=== PATIENT | female | born 1985 | race Caucasian/White ===

== ENCOUNTER 2021-01-03 15:50 | Emergency (ER) | payer MEDICAID, SELFPAY ==
[2021-01-03] VITALS (7 sets, daily range): BP systolic 99–111; BP diastolic 66–75; PULSE 70–81; RESP 14–16; TEMP 36.6; O2SAT 97–98; BMI 30.3
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
[2021-01-03 16:53] LABS: Absolute Lymphocyte Count 1.93 X10^3/uL (0.83-4.51); Absolute Neutrophil Count 9.2 X10^3/uL (2.0-7.7); Basophil# 0.09 X10^3/uL; Basophil% 0.7 % (0-1); Eosinophil# 0.04 X10^3/uL; Eosinophils% 0.3 % (0-5); Hematocrit 47.6 % (37-47); Hemoglobin 15.6 g/dL (12.0-15.0); Lymphocyte # 1.93 X10^3/ul (0.83-4.51); Lymphocyte % 15.7 % (19-41); Mean Corp Hgb Conc 32.8 g/dL (32-36); Mean Corpuscular Hgb 27.1 pg (27.0-32.0); Mean Corpuscular Volume 82.8 fL (81-99); Mean Platelet Vol. 10.3 fl (6.2-12.0); Monocyte# 0.89 X10^3/uL; Monocyte% 7.3 % (0-10); NRBC Flagged by Analyzer 0 % (0-5); Neutrophil # 9.23 X10^3/uL (2.7-7.7); Neutrophil % 75.3 % (47-70); Platelet Count 301 K/mm3 (150-450); RBC Distribution Width CV 12.5 % (11.6-14.6); RBC Distribution Width SD 37.6 fl (35.1-43.9); Red Blood Count 5.75 M/mm3 (4.2-5.4); White Blood Count 12.3 K/mm3 (4.4-11.0)
[2021-01-03 17:00] LABS: Anion Gap 7 (5-15); BUN 9 mg/dL (7-18); BUN/Creat Ratio 10.4 RATIO (10-20); Calcium,Total 9.2 mg/dL (8.5-10.1); Chloride 106 mmol/L (98-107); Creatinine, Serum 0.86 mg/dL (0.55-1.02); EST Glomerular Filtration Rate 80 mL/min (>60); Est Glom Filt Rate - Afr Amer 97 mL/min (>60); Estimated Creatinine Clearance 83.72 ml/min; Glucose 89 mg/dL (74-106); Sodium Level 138 mmol/L (136-145)
[2021-01-03 17:06] LABS: Amphetamine Urine VISTA NEGATIVE (<1000 ng/mL); Barbiturate Urine VISTA NEGATIVE (< 200 ng/mL); Benzodiazepine Urine VISTA NEGATIVE (< 200 ng/mL); Cocaine Urine VISTA NEGATIVE (< 300 ng/mL); Ecstacy Urine VISTA NEGATIVE (< 500 ng/mL); Methadone Urine VISTA NEGATIVE (< 300 ng/mL); PCP Urine VISTA NEGATIVE (< 25 ng/mL); THC Urine VISTA POSITIVE (< 50 ng/mL); Vista UDS pH Range 5
[2021-01-03 17:17] LABS: Internal QC Validated? YES +Cl - CLEAR BKGD; Pregnancy, Serum, hCG Quali. NEGATIVE Negative
[2021-01-03 17:21] LABS: Acetaminophen (Tylenol) Level 6.1 ug/mL (10.0-30.0); Alcohol, Blood (Medical)-Serum < 3.0 mg/dL
[2021-01-03 18:17] LABS: Salicylate < 1.7 mg/dL (2.8-20.0)
--- NOTE | 2021-01-03 21:35 | ED.RN ---
[facility] CALLED AND THEY ARE PLACING PATIENT, THE PATIENT WAS GOING TO BE SAFETY PLANNED AND TO BE SENT HOME, BUT [facility] CANT GET A HOLD OF FAMILY SO THEY ARE PLACING THE PATIENT.
[2021-01-03 22:27] LABS: Acetaminophen (Tylenol) Level < 2.0 ug/mL (10.0-30.0)
[2021-01-04] VITALS (8 sets, daily range): BP systolic 106; BP diastolic 56; PULSE 86; RESP 14–18; O2SAT 98
--- NOTE | 2021-01-04 00:20 | ED.RN ---
THIS RN IN TO ROOM TO TELL PATIENT ABOUT PLACEMENT AT [facility]. PATIENT BECAME ANGRY AND VERY AGITATED. PATIENT BEGAN SLAMMING PHONE AND REMOTE ON BED. PATIENT STATING SHE DOES NOT WANT TO GO OUT OF TOWN. PATIENT BEGAN PACING IN ROOM WHILE YELLING SHE IS NOT GOING. PATIENT THEN LEFT ROOM AND THE BUILDING. SECURITY AND PD NOTIFIED.
[2021-01-04] MEDS: Ziprasidone IM 20 MG/ML VIAL 10 MG IM (00:53)
== END 2021-01-04 07:18 ==
PROVIDERS: Emergency Provider Emergency Medicine; PCP Family Medicine
DX: R45.851 Suicidal ideations (principal); F32.9 Major depressive disorder, single episode, unspecified; F12.90 Cannabis use, unspecified, uncomplicated
CPT/HCPCS: 36415; 80048; 80307; 80329; 82077; 84703; 85025; 87426; 96372; 99285; G0480; J3486

== ENCOUNTER 2022-02-15 01:06 | Emergency (ER) | payer MEDICARE, MEDICAID, SELFPAY ==
[2022-02-15 01:07] VITALS: BP 110/67; PULSE 63; RESP 18; TEMP 36.2; O2SAT 99; BMI 31.5
[2022-02-15 05:39] VITALS: BP 133/71; PULSE 72; RESP 14; O2SAT 96
--- NOTE | 2022-02-15 23:06 | EDS_ITS ---
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 She states that in the last days she has noticed a red itchy rash across her arms and face. She states nowhere else does she have the rash and she denies any other exposures other than working outside. She states she is concerned she is developed poison mk and secondary to this comes in for evaluation. [facility] Medical History Depression Home Medications escitalopram oxalate 10 mg tablet 10 mg PO DAILY 02/15/22 [History Last Taken Unknown] Allergy/AdvReac Type Severity Reaction Status Date / Time No Known Allergies Allergy Verified 01/03/21 15:58 Social History Smoking Status: Never smoker ROS ROS ED Constitutional Constitutional ED: Denies chills or fever(s) ENT ENT ED: Denies sore throat Cardiovascular Cardiovascular: Denies chest pain Respiratory/Chest Respiratory/Chest: Denies cough or dyspnea Gastrointestinal Gastrointestinal: Denies abdominal pain, diarrhea, nausea or vomiting Genitourinary Genitourinary ED: Denies dysuria Musculoskeletal Musculoskeletal: Denies myalgias Integumentary Reports rash Neurologic Neurologic: Denies headache(s) Hematologic/Lymphatic Hematologic/Lymphatic: Denies easy bleeding or easy bruising EXAM Physical Exam Const Vital Signs: 02/15/22 01:07 02/15/22 05:39 Temperature 97.2 F L Temperature Source Temporal Pulse Rate 63 72 Respiratory Rate 18 14 Blood Pressure 110/67 133/71 H Blood Pressure Mean 81 Pulse Ox 99 96 Oxygen Delivery Method Room Air Positive well nourished and well developed General Appearance ED: well developed HEENT Reports moist mucous membranes HEENT Narrative: No tongue or lip swelling no oral lesions no airway edema or compromise Eyes PERRL and EOMs intact bilaterally Neck supple Resp normal respiratory effort and clear to auscultation bilaterally Cardio regular rate and regular rhythm Extremity normal to inspection Neuro oriented x3 and CN's II-XII intact bilaterally Sensorium / Orientation: alert Psych mental status grossly normal Skin Skin Narrative: Erythematous vesicular rash in Kebner's line pattern to the bilateral arms as well as irritation across the cheek and forehead consistent with contact dermatitis. No involvement of the palms or soles. No involvement underneath th e clothing line. No secondary changes to suggest infection MDM MDM MDM Narrative Medical decision making narrative: Patient presented to the ER afebrile with no signs of respiratory distress. Her history and exam is consistent with contact dermatitis. As she does not have signs of respiratory distress or secondary infection I do not feel there is need for work-up. Patient will be given Kenalog shot in the ER secondary to her symptoms and will be placed on a prednisone taper for home but is otherwise safe for discharge Discharge Plan Triage Chief Complaint: Rash ED Provider: Larry Mcmahan Dx/Rx/DC Orders Clinical Impression: Contact dermatitis Prescriptions: No Action escitalopram oxalate 10 mg tablet 10 mg PO DAILY Label Comments: Take 1 tablet by mouth once daily. Primary Care Provider: Kofi Collins Referrals: Kofi Collins MD [Primary Care Provider] - Disposition Disposition: Home, Self Care Discharge Date/Time: 02/15/22 02:50
== END 2022-02-15 02:50 | disposition home or self-care (01) ==
PROVIDERS: Emergency Provider Emergency Medicine; PCP Family Medicine; Visit Provider Emergency Medicine
DX: L25.9 Unspecified contact dermatitis, unspecified cause (principal); F32.A Depression, unspecified; Z79.899 Other long term (current) drug therapy
CPT/HCPCS: 96372; 99282

== ENCOUNTER 2022-04-05 21:45 | Emergency (ER) | payer MEDICARE, MEDICAID, SELFPAY ==
[2022-04-05 21:46] VITALS: BP 116/73; PULSE 81; RESP 15; TEMP 36.8; O2SAT 98; BMI 29.1
--- NOTE | 2022-04-05 22:00 | EDS_ITS ---
HPI History of Present Illness Chief Complaint: Rash Informant: patient and spouse/S.O. Onset/Context/Timing Onset: Days Context: Gradual Onset Timing: Continuous Current Severity: Mild Maximum Severity: Mild Narrative Narrative: 36-year-old female no seen past medical history was doing a lot of yard work at home they were cleaning bushes etc. and the last 4 days she has had a red itchy rash on her right arm. She has had this before secondary to allergic reaction. Was treated with steroids that resolved. She denies any other complaints. Prior similar symptoms: Yes Recent Illness/Hospitalization: No PFSH PFS Medical History Depression no medical history Home Medications escitalopram oxalate 10 mg tablet 10 mg PO DAILY 02/15/22 [History Last Taken Unknown] prednisone 20 mg tablet 40 mg PO DAILY 10 days #20 tabs 04/05/22 [Rx Last Taken Unknown] Allergy/AdvReac Type Severity Reaction Status Date / Time No Known Allergies Allergy Verified 04/05/22 21:48 Family History no significant family his no significant family history Social History Smoking Status: Never smoker ROS ROS ED Review of Systems ROS Unobtainable: Denies due to encephalopathy Constitutional Constitutional ED: Denies chills or fever(s) Eyes Eyes: Denies blurry vision ENT ENT ED: Denies ear pain Cardiovascular Cardiovascular: Denies chest pain Respiratory/Chest Respiratory/Chest: Denies cough or dyspnea Gastrointestinal Gastrointestinal: Denies abdominal pain Genitourinary Genitourinary ED: Denies dysuria or hematuria Musculoskeletal Musculoskeletal: Denies arthralgias Integumentary Denies abscess or Abrasions Neurologic Neurologic: Denies headache(s) Psychiatric Psychiatric: Denies anxiety or depression Endocrine Endocrinology: Denies cold intolerance Hematologic/Lymphatic Hematologic/Lymphatic: Reports none Allergic/Immunologic Allergic/Immunologic ED: Denies mouth swelling or tongue swelling EXAM Physical Exam Narrative Exam Narrative: 36-year-old no acute distress vital signs stable afebrile. HEENT exam unremarkable. Lungs are clear. Heart regular rhythm. Abdomen soft nontender. Moving all 4 extremities. Right forearm and upper arm she has a rash consistent with poison kourtney or contact dermatitis. There is no folliculitis. No cellulitis. No axillary lymphadenopathy. No streaks. No abscesses. Otherwise exam benign. Const Vital Signs: 04/05/22 21:46 Temperature 98.2 F Temperature Source Temporal Pulse Rate 81 Respiratory Rate 15 Blood Pressure 116/73 Blood Pressure Mean 87 Pulse Ox 98 Oxygen Delivery Method Room Air Positive well nourished and well developed; Negative for obese, cachectic, contractures or unkempt General Appearance ED: well developed and NAD; Negative for unkempt, cachectic, contractures, cyanotic or pallor Nutritional Appearance: Negative for cachectic or obese HEENT Reports moist mucous membranes; Denies dry mucous membranes Negative for trauma Mouth ED: No dry mucous membranes Mouth: No dry mucous membranes Eyes PERRL and EOMs intact bilaterally General Eye ED: Negative for pale conjunctiva or scleral icterus Neck no lymphadenopathy, supple and no JVD General: Negative for tenderness Lymph Lymphatic: Negative for other Chest Wall inspection of chest normal Chest: Negative for other Resp normal respiratory effort and clear to auscultation bilaterally Effort and Inspection: Negative for retractions Auscultation: Negative for rales, rhonchi or wheezes Cardio regular rate, regular rhythm, S1 normal heart sound, S2 normal heart sound and no murmurs Palpation: Negative for palpable S3 Rate: Negative for bradycardia Rhythm: Negative for abnormal rhythm GI normal to inspection, nondistended, normoactive bowel sounds, non-tender, non- distended and no masses Inspection: Negative for abdominal distention Auscultation: normoactive bowel sounds Palpation: soft; Negative for tender, guarding, splenomegaly or mass Back/Spine no CVA tenderness General Back: Negative for CVA tenderness Cervical Spine: Negative for cervical spine tenderness Thoracic Spine / Upper Back: Negative for thoracic spinal tenderness Lumbar Spine / Lower Back: Negative for lumbar spinal tenderness Extremity normal to inspection Extremity Narrative: Except for contact dermatitis rash right forearm and upper arm. General Extremety ED: Negative for edema or tenderness General Extremity: Negative for edema Neuro oriented x3 and CN's II-XII intact bilaterally Sensorium / Orientation: alert Motor Exam: strength 5/5 throughout Psych mental status grossly normal Appearance: Negative for unkempt Attitude: No agitated Mood & Affect: Negative for depressed or anxious Skin no rashes or lesions noted and no wounds Skin Narrative: Right forearm rash consistent with contact dermatitis. General Skin Exam: Negative for elasticity normal, jaundice or pallor Lesions: No lesion noted Rashes: rashes noted MDM MDM MDM Narrative Medical decision making narrative: Patient with contact dermatitis to be started on prednisone. First dose given here. 40 mg a day for 10 days and she was instructed she may stop it early if the rash resolves. Discharge Plan Triage Chief Complaint: Rash ED Provider: Froylan David Dx/Rx/DC Orders Clinical Impression: Contact dermatitis Instructions: ED Contact Dermatitis, ED Poison Kourtney Rash Prescriptions: New prednisone 20 mg tablet 40 mg PO DAILY 10 Days Qty: 20 0RF No Action escitalopram oxalate 10 mg tablet 10 mg PO DAILY Label Comments: Take 1 tablet by mouth once daily. Primary Care Provider: Kofi Collins Referrals: Kofi Collins MD [Primary Care Provider] - 1 Week if not improving Activity Restrictions/Additional Instructions: Prednisone daily 40 mg for the next 10 days. If the rash goes away before the prescription is finished he may stop. Benadryl for itching. Follow-up with your doctor if not improving. Return if worse. Disposition Disposition: Home, Self Care
[2022-04-05] MEDS: predniSONE 20 MG Tablet 60 MG PO (22:07)
== END 2022-04-05 22:08 | disposition home or self-care (01) ==
PROVIDERS: Emergency Provider Emergency Medicine; PCP Family Medicine; Visit Provider Emergency Medicine
DX: L25.9 Unspecified contact dermatitis, unspecified cause (principal); F32.A Depression, unspecified; Z79.899 Other long term (current) drug therapy
CPT/HCPCS: 99283

== ENCOUNTER 2025-06-21 15:58 | Emergency (ER) | payer MEDICARE, MEDICAID, SELFPAY ==
[2025-06-21 15:59] VITALS: BP 120/81; PULSE 77; RESP 16; TEMP 36.8; O2SAT 99; BMI 30.3
--- NOTE | 2025-06-21 16:15 | RAD_ITS ---
PROCEDURE: KNEE 4 OR MORE VIEWS 06/21/2025 REASON FOR EXAM: PAIN TECHNIQUE: Procedure Code: RADKN Modality: DX Procedure: KNEE 4 OR MORE VIEWS Laterality: FINDINGS: No acute fracture or dislocation. Questionable joint space narrowing, particularly in the lateral compartment, however this may be projectional in nature. Otherwise no significant bone or joint abnormality. No focal soft tissue swelling. RAD/Knee 4 or More Views IMPRESSION: As above. Reading Location: [id number]
--- NOTE | 2025-06-21 19:22 | ED.VIS.LOWEX ---
HPI History of Present Illness HPI Narrative: 40-year-old female no significant past medical history. Complaining of mild knee pain for the last several days. She has been doing landscaping outside and cleaning out the garage. Says just feels sore. No redness. No fever. No prior knee history or surgery. She is able to walk. Chief Complaint: Lower Extremity Injury Informant: patient Occured/Mechanism Mechanism/Context: No injury and No blunt trauma Narrative Narrative: 40-year-old right knee pain. Prior similar symptoms: No Recent Illness/Hospitalization: No PFSH PFSH Medical History Depression Home Medications ?Medication ?Instructions ?Recorded ?Last Taken ?Type escitalopram oxalate 10 mg tablet 10 mg PO DAILY 02/15/22 Unknown History prednisone 20 mg tablet 40 mg (2 x 20 mg) PO DAILY 10 days 04/05/22 Unknown Rx #20 tabs Allergy/AdvReac Type Severity Reaction Status Date / Time No Known Allergies Allergy Verified 06/21/25 15:59 Social History Smoking Status: Never smoker ROS ROS ED ROS Narrative Denies recent illness. Constitutional Constitutional ED: Denies fever(s) Eyes Eyes: Denies blurry vision ENT ENT ED: Denies ear pain Cardiovascular Cardiovascular: Denies chest pain Respiratory/Chest Respiratory/Chest: Denies cough or dyspnea Gastrointestinal Gastrointestinal: Denies abdominal pain Genitourinary Genitourinary ED: Denies dysuria or hematuria Musculoskeletal Musculoskeletal: Denies arthralgias Integumentary Denies abscess Neurologic Neurologic: Denies headache(s) Psychiatric Psychiatric: Denies anxiety Endocrine Endocrinology: Denies polydipsia Hematologic/Lymphatic Hematologic/Lymphatic: Denies easy bleeding, easy bruising or lymphadenopathy Allergic/Immunologic Allergic/Immunologic ED: Denies mouth swelling, tongue swelling or urticaria EXAM Physical Exam Narrative Exam Narrative: 40-year-old female sitting upright in bed. Vital signs stable afebrile. No acute distress. H EENT exam normal. Moist membranes. Neck nontender no JVD. No lymphadenopathy. Lungs clear to auscultation bilaterally. Heart regular rhythm no murmur. Chest wall nontender. Abdomen soft nontender. Patient moving all 4 extremities. 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 Normal dorsi plantarflexion. Right hip knee and ankle are nontender nonswollen. The right knee has full flexion extension. ACL, PCL are intact. MCL and LCL are intact. Quadriceps and patella and infrapatellar tendon are intact. She can do full extension 180 degrees in full flexion. There is no effusion. No redness or warmth. No septic joint. Normal knee exam. Patient is awake and alert. No focal motor deficits. Const Vital Signs: 06/21/25 15:59 Temperature 98.2 F Temperature Source Oral Pulse Rate 77 Respiratory Rate 16 Blood Pressure 120/81 H Blood Pressure Mean 94 Pulse Ox 99 Oxygen Delivery Method Room Air MDM MDM MDM Narrative Medical decision making narrative: 40-year-old with knee pain from overuse. Exam benign. X-ray unremarkable. Treated as knee inflammation. Ice. Motrin. Follow-up with not proving return if redness or swelling. Radiography Diagnostic Testing: Clinical Impression(s) from Imaging Studies Knee X-Ray 06/21/25 16:15 IMPRESSION: As above. Reading Location: [facility] Right knee x-ray, 4 views, interpreted by myself and the radiologist shows no acute abnormality. No fracture. No effusion. Discharge Plan Triage Chief Complaint: Lower Extremity Injury ED Provider: Froylan David Dx/Rx/DC Orders Clinical Impression: Acute knee pain Instructions: Knee Pain Prescriptions: No Action escitalopram oxalate 10 mg tablet 10 mg PO DAILY Patient Comments: Take 1 tablet by mouth once daily. prednisone 20 mg tablet 40 mg PO DAILY 10 Days Qty: 20 0RF Primary Care Provider: Kofi Collins Referrals: Kofi Collins MD [Primary Care Provider, Family Practice] - 10-14 Days if not better Activity Restrictions/Additional Instructions: Your knee x-ray looks good. Ice the knee to decrease pain and inflammation. Motrin 600 mg 3 times a day for pain and inflammation. Tylenol for pain. This should progressively improved. Increase activity as tolerated. If not improving follow-up with your doctor. Print Language: Luxembourgish Disposition Disposition: Home, Self Care
[2025-06-21 19:38] VITALS: BP 106/69; PULSE 67; RESP 16; TEMP 36.8; O2SAT 99
--- OUTSIDE RECORDS SUMMARY | 2025-06-21 19:39 | XMS RPT_ITS | CCD ---
Author Organization [facility] Inform ion Partnership [facility] Care Team Providers Care [employer] Pack[employer] Leak Tester Name Role Phone Kena Delaney MD Primary Care Provider Kena Delaney MD Primary Care Provider Tannhof NUMERICAL CONTROL DRILL PRESS OPERATOR.Shelly DAVENPORT Unavailable Rell NUMERICAL CONTROL DRILL PRESS OPERATOR.Sidney DAVENPORT Unavailable Tannhof NUMERICAL CONTROL DRILL PRESS OPERATOR.Shelly DAVENPORT Unavailable KENA DELANEY Primary Care Unavailable WENDY EUCEDA Attending Unavailable KENA DELANEY Attending Unavailable KENA DELANEY Primary Care Unavailable TIFFANIE PRYOR Attending Unavailable KENA DELANEY Referring Unavailable KENA DELANEY Primary Care Unavailable TIFFANIE PRYOR Attending Unavailable TIFFANIE PRYOR Referring Unavailable KENA DELANEY Primary Care Unavailable Medications Current Medications Medication Drug Class(es) Dates Sig (Normalized) Sig (Original) amoxicillin 875 mg / clavulanate 125 mg oral tablet (1 source) Penicillin-class Antibacterial Start: 03-10-2024 End: 03-20-2024 take 1 tablet by mouth twice daily amoxicillin-clavu lanate potassium (AUGMENTIN) 875-125 mg per tablet Indications: Cellulitis of skin Take 1 tablet by mouth two times a day for 10 days. 20 tablet 0 03/10/2024 03/20/2024 Active cholecalciferol 0.1 mg oral capsule (10 sources) Vitamin D Start: 02-14-2021 take 1 capsule by mouth twice daily cholecalciferol, vitamin D3, (VITAMIN D3) 100 mcg (4,000 unit) cap Indications: Vitamin D deficiency Take 1 capsule by mouth twice daily. 60 capsule 6 02/14/2021 Active Comment on above: Take 1 capsule by mo [facility] twice daily. escitalopram 10 mg oral tablet (15 sources) Serotonin Reuptake Inhibitor Start: 02-14-2021 End: 11-25-2024 take 1 tablet by mouth once daily escitalopram oxalate (LEXAPRO) 10 mg tablet Indications: Current moderate episode of major depressive disorder, unspecified whether recurrent (HCC) Take 1 tablet by mouth once daily. 30 tablet 11 11/25/2024 Active Comment on above: Take 1 tablet by [facility] once daily. hydrOXYzine pamoate 50 mg oral capsule (9 sources) Antihistamine Start: 11-25-2024 End: 05-24-2025 take 1 capsule by mouth three times daily as needed for anxiety hydrOXYzine pamoate (VISTARIL) 50 mg capsule Indications: Current moderate episode of major depressive disorder, unspecified whether recurrent (HCC) Take 1 capsule by mouth three times a day as needed for anxiety. 60 capsule 5 11/25/2024 05/24/2025 Active Start: 2023 End: 11-17-2023 take 1 capsule by mouth three times daily as needed for anxiety hydrOXYzine pamoate (VISTARIL) 50 mg capsule Indications: Current moderate episode of major depressive disorder, unspecified whether recurrent (HCC) Take 1 capsule by mouth three times daily as needed for anxiety. 60 capsule 5 2023 11/17/2023 Active Comment on above: Take 50 mg by mouth three times daily as needed. Take 1 capsule by [facility] three times daily as needed for anxiety. levonorgestrel 0.011479 mg/hr intrauterine system (15 sources) Progestin, Progestin-containing Intrauterine Device Start: 01-05-2025 End: 01-03-2033 levonorgestrel (MIRENA) 21 mcg/24hr (up to 8 yrs) 52 mg IUD 1 each by INTRAUTERINE route as directed. 1 each 01/05/2025 01/03/2033 Active Start: 01-05-2025 End: 01-05-2025 1 each, INTRAUTERINE, ONCE ( UP TO 30 DAYS AMB), 1 dose, On Sun01/05/25 at 1030, Hazardous Potential Reproductive Risk Drug: Use appropriate PPE. levonorgestrel ( MIRENA) 20 mcg/24 hr (5 years) IUD 1 Each by INTRAUTERINE route one time only. Active Comment on above: 1 Each by INTRAUTERI NE route one time only. predniSONE 20 mg oral tablet (5 sources) Start: 4 End: 4 take 1 tablet by mouth once daily predniSONE (DELTASONE) 20 mg tablet Take 1 tablet by mouth once daily for 5 days. 5 tablet 0 03/10/2024 03/15/2024 Active Start: 02-12-2023 End: 03-10-2024 predniSONE (DELTASONE) 10 mg tablet Take 4 tabs daily for 3 days, then 2 tabs daily for 3 days, then 1 tab daily for 3 days with food. 21 tablet 0 02/12/2023 03/10/2024 Discontinued Start: 04-05-2022 take 40 mg by mouth once daily Prednisone Active 40 MG PO DAILY 22 06April 05, 2022 12:00am Comment on above: Take 4 tabs daily fo r 3 days, then 2 tabs daily for 3 days, then 1 tab daily for 3 days with food. triamcinolone acetonide 5 mg/ml topical cream (2 sources) Corticosteroid Start: 05-09-2022 End: 05-23-2022 triamcinolone acetonide (KENALOG) 0.5 % cream Apply 1 application to affected area twice daily for 14 days. For rash/itching. Apply sparingly. Avoid face/skin fold. 15 g 0 05/09/2022 05/23/2022 Active Comment on above: Apply 1 application to affected area twice daily for 14 days. For rash/itching. Apply sparingly. Avoid face/skin fold. Problems Active Problems Problem Classification Problem Date Documented Da te Episodic/Chronic Allergic reactions (4 sources) Contact dermatitis; Translations: [Unspecified contact dermatitis, unspecified cause] Episodic Immunizations and screening for infectious disease (2 sources) Viral screening status; Translations: [Encounter for screening for other viral diseases] Episodic Mood disorders (12 sources) Depressive disorder; Translations: [Depression, unspecified depression type] Onset: 05-24-2022 Chronic Other nutritional; endocrine; and metabolic disorders (1 source) Obesity; Translations: [Other obesity due to excess calories] Onset: 05-24-2022 05-24-2022 Chronic Other nutritional; endocrine; and metabolic disorders (8 sources) Obesity caused by energy imbalance; Translations: [Other obesity due to excess calories] Onset: 05-24-2022 05-24-2022 Chronic Other screening for suspected conditions (not mental disorders or infectious disease) (2 sources) Cancer cervix screening status; Translations: [Encounter for screening for malignant neoplasm of cervix] Episodic Other skin disorders (1 source) Skin lesion; Translations: [Disorder of the skin and subcutaneous tissue, unspecified] 2023 Episodic Other upper respiratory infections (1 source) Sore throat symptom; Translations: [Acute pharyngitis, unspecified] 02-25-2024 Episodic Residual codes; unclassified (1 source) Swelling; Translations: [Edema, unspecified] 03-10-2024 Episodic Screening and history of mental health and substance abuse codes (1 source) Patient encounter status; Translations: [Encounter for screening examination for other mental health and behavioral disorders] 11-25-2024 Episodic Skin and subcutaneous tissue infections (1 source) Cellulitis of skin; Translations: [Cellulitis, unspecified] 03-10-2024 Episodic Sprains and strains (2 sources) Sprain of right knee; Translations: [Sprain of unspecified site of right knee, initial encounter] Onset: 04-28-2025 04-28-2025 Episodic Suicide and intentional self-inflicted injury (2 sources) Suicidal thoughts; Translations: [Suicidal ideations] Episodic Unclassified (1 source) Patient encounter status 11-25-2024 Past or Other Problems Problem Classification Problem Date Documented Date Episodic/Chronic Administrative/social admission (7 sources) Lost custody of children; Translations: [Problems related to other legal circumstances] Onset: 06-01-2015 Resolved: 12-15-2015 08-29-2021 Episodic Bacterial infection; unspecified site (9 sources) Actinomycotic infection; Translations: [Actinomycosis, unspecified] Onset: 05-30-2022 05-30-2022 Episodic Contraceptive and procreative management (7 sources) Contraception status; Translations: [Encounter for removal and reinsertion of intrauterine contraceptive device] Onset: 01-05-2025 Episodic Mycoses (7 sources) Onychomycosis due to dermatophyte ; Translations: [Tinea unguium] Onset: 07-17-2005 Resolved: 08-13-2014 08-13-2014 Episodic Other complications of (14 sources) Late entry into care; Translations: [Supervision of with insufficient care, unspecified trimester] Onset: 08-13-2014 Resolved: 12-15-2015 08-29-2021 Episodic Other complications of (7 sources) Rubella non-immune; Translations: [Supervision of other high risk pregnancies, unspecified trimester] Onset: 08-18-2014 Resolved: 12-18-2014 12-18-2014 Episodic Other complications of (7 sources) High risk ; Translations: [Supervision of other high risk pregnancies, unspecified trimester] Onset: 04-05-2015 Resolved: 12-15-2015 12-15-2015 Episodic Other complications of (7 sources) H/O: premature delivery; Translations: [Supervision of with history of pre-term labor, second trimester] Onset: 05-03-2015 Resolved: 12-15-2015 08-29-2021 Episodic Other non-traumatic joint disorders (7 sources) Arthralgia of the ankle and/or foot; Translations: [Pain in unspecified ankle and joints of unspecified foot] Onset: 05-16-2008 Resolved: 08-13-2014 08-13-2014 Episodic Other and delivery including normal (7 sources) Normal ; Translations: [Encounter for supervision of other normal , unspecified trimester] Onset: 09-10-2014 Resolved: 12-18-2014 12-18-2014 Episodic Results Test Name Value Interpretation Reference Range Kena HUTCHISONOVon 04-28-2025 CNOV Office Visit (WOUCA) LIANNE SPARKS ([id number]) 1985 F Date Time Provider Department 04/28/25 3:45 PM WENDY EUCEDA During your visit today, we recorded the following information about you: Temperature Pulse Respiration Blood pressure 98 degrees 76/minute 16/minute 122/74 Weight 83.3 kg Wendy Euceda, KIMBERLEE.SHIPPING ASSOCIATE 04/28/2025 3:52 PM Signed [facility] Subjective Lianne Sparks is a 39 year old female. Patient presents with: Thigh Pain: right thigh pain x 1 day HPI The patient is a 39-year-old female presenting for evaluation of a popping sensation in the thigh. Thigh Popping: - Onset yesterday while bending down in her room. - Preceded by a day of yard work involving repetitive bending. - Describes a poppingsensation in the thigh above the knee and some slight knee pain. - Sherwood unable to bend the leg yesterday; propped it up on a pillow and took pain medication. - Woke up today with continued pain in right thigh but improved from yesterday. - Denies any falls or trauma. Review of Systems Constitutional: Negative for chills and fever. Musculoskeletal: Positive for myalgias. Negative for back pain, gait problem and joint swelling. Skin: Negative for color change and rash. Musculoskeletal: (+) right thigh popping sensation, (+) right knee pain, (-) calf pain Objective BP 122/74 Pulse 76 Temp 36.7 ?C (98 ?F) Resp 16 Wt 83.3 kg (183 lb 10.3 oz) LMP 12/05/2015 SpO2 98% BMI 33.59 kg/m? PAST MEDICAL HISTORY Diagnosis Date - Depression - Depression 05/24/2022 PAST SURGICAL HISTORY Procedure Laterality Date - MIRENA 09/20/2015 ALLERGIES Patient has no known allergies. MEDICATIONS - escitalopram oxalate (LEXAPRO) 10 mg tablet Take 1 tablet by mouth once daily. - hydrOXYzine pamoate (VISTARIL) 50 mg capsule Take 1 capsule by mouth three times a day as needed for anxiety. - cholecalciferol, vitamin D3, (VITAMIN D3) 100 mcg (4,000 unit) cap Take 1 capsule by mouth twice daily. - levonorgestrel (MIRENA) 20 mcg/24 hr (5 years) IUD 1 Each by INTRAUTERINE route one time only. - levonorgestrel (MIRENA) 21 mcg/24hr (up to 8 yrs) 52 mg IUD 1 each by INTRAUTERINE route as directed. FAMILY HISTORY Problem Relation Age of Onset - No Known Problems Mother - No Known Problems Father - other (marfans) Half-sister - Hypertension Maternal Grandmother - Heart Maternal Grandmother - No Known Problems Maternal Grandfather - No Known Problems Paternal Grandmother - No Known Problems Paternal Grandfather SOCIAL HISTORY[1] Physical Exam Vitals and nursing note reviewed. Constitutional: General: She is not in acute distress. Appearance: Normal appearance. She is not ill-appearing. Neurological: Mental Status: She is alert. General: No acute distress. MSK/Ext: Tenderness reported along right distal thigh, knee stable, pain elicited with knee flexion, no calf pain. No knee, thigh or calf swelling. Skin warm and dry. No erythema or rash. { 1. Sprain of right knee, unspecified ligament, initial encounter (S83.91XA) - Acute right knee sprain after increased activity and sudden movement; exam reveals localized pain, but knee is stable with no calf pain. - Applied BIJU wrap for stabilization and compression. - Advised rest, elevation, and application of ice to the affected area. - Recommended use of ibuprofen or Tylenol for pain management. - Follow-up with your PCP in 3-5 days if symptoms have not improved or sooner if symptoms worsen - Discussed red flags and need for immediate medical evaluation if any occur. - Discussed supportive care treatment with fluids, rest and analgesia. - Discussed expected course of illness Wendy Euceda APRN.SHIPPING ASSOCIATE and Recording using [employer] software for draft documentation of the visit was discussed with the patient/authorized sales utility representative; all questions welcomed and answered. Patient/authorized sales utility representative agreed to proceed Disposition The patient was discharged. OTC Medications were advised: Tylenol/ibuprofen Procedures [1] Social History Tobacco Use - Smoking status: Never - Smokeless tobacco: Never Vaping Use - Vaping status: Former Substance Use Topics - Alcohol use: No - Drug use: Not Currently Types: Marijuana Wendy Euceda APRN.SHIPPING ASSOCIATE 04/28/2025 3:51 PM Signed 1. Sprain of right knee, unspecified ligament, initial encounter (S83.91XA) - Acute right knee sprain after increased activity and sudden movement; exam reveals localized pain, but knee is stable with no calf pain. - Applied BIJU wrap for stabilization and compression. - Advised rest, elevation, and application of ice to the affected area. - Recommended use of ibuprofen or Tylenol for pain management. - Diagnosis: sprained right knee. - The BIJU wrap applied will help stabilize your kne (more content not included)... Normal [facility] CNOVon 01-05-2025 CNOV Office Visit (OBGYWM ) LIANNE SPARKS ([id number]) 1985 F Date Time Provider Department 01/05/25 10:10 AM TIFFANIE PRYOR OBEMILEE During your visit today, we recorded the following information about you: Blood pressure Weight 110/64 84.4 kg Tiffanie Pryor MD 01/05/2025 10:24 AM Carol Abdalla presents for removal of IUD due to expiration of IUD. UNIVERSAL PROTOCOL / SAFETY CHECKLIST Procedure to be Performed: IUD removal Sign In: A Moment of CARE was completed. Appropriate PPE (Personal Protective Equipment) worn by all providers involved with the procedure. Special equipment not required. Patient/Surrogate Stated/Verified: Patient name, Date of , Relevant allergies, and The intended procedure Time Out: Relevant labs, photos, and/or imaging studies have been reviewed. Intended patient and procedure match the source document(s) (e.g. consent, HANDP, associated studies [imaging, pathology]) match the intended patient and procedure. Consent obtained and matches the intended procedure. Yes. Correct side/site is not applicable. Medications required for this procedure are not applicable. Fire risk assessed and is not applicable. Implants: Correct implant(s) confirmed including size and side. Expiration date(s) reviewed. Sign Out: Specimens not collected. All instruments, equipment, possible retained foreign bodies are accounted for. Yes. The post-procedure plan of care has been communicated to the patient or surrogate. PROCEDURE: Speculum placed in vagina, IUD string visualized and grasped with ring forceps. ASSESSMENT/PLAN: IUD removed without difficulty, intact, and patient tolerated procedure well. Contraception plans: Mirena IUD MD Lianne Matthews presents today for IUD insertion for contraception. Patient's last menstrual period was 12/05/2015. GC/chlamydia: Not done: no risk factors and/or patient declines screening test: negative Side effects including irregular bleeding were discussed with the patient. The patient understands that it should be removed in 8 years or sooner if the patient desires a . IUD source: office provided IUD lot #: [id number] Exp date: 01/31/2027 The cervix was prepped with betadine. The uterus sounded to 3 cm and the uterus is Midposition.. Using sterile technique, the Mirena IUD was inserted without difficulty and the string was cut to 3 cm from the external os of the cervix. Patient tolerated procedure well. PLAN: Patient was advised to observe for signs and symptoms of infection including but not limited to fever, malodorous vaginal discharge and/or pain. The patient was told to check the string monthly for accurate placement. Bleeding expectations were reviewed. Follow up for next annual exam or sooner as needed. Tiffanie Pryor MD [place], [place] 01/05/2025 9:55 AM Signed POST IUD INSTRUCTIONS You may have irregular bleeding during the first 3 months of use. You may have mild-severe cramping for the next 48 hours. You may use over the counter medication (Motrin, Tylenol) as needed. Your IUD must be removed or replaced based on the following table: IUD Type Removed or replaced within: Valerie 3 years Kyleena 5 years Mirena 8 years Liletta 8 years Paragard 10 years Call the office for signs/symptoms of infection such as severe cramping, fever, or unusual bleeding. Check for string placement as instructed by your doctor. If you have any additional questions, please contact the office. Referring Provider: TIFFANIE PRYOR [[id number]] Allergies As of Date: 01/05/2025 (No Known Allergies) Date Reviewed: 01/05/2025 Reviewed by: Tiffanie Pryor MD - Fully Assessed Reason for Visit: Insertion Of IUD [291] Cmt: Removal and insertion Primary Visit Diagnosis:Encounter for removal and reinsertion of intrauterine contraceptive device (IUD) [Z30.433] Other Visit Diagnosis:Encounter for IUD insertion [Z30.430] Order(s):UA DIP,URINE HCG (POC) [3201434] Order #: [id number]. #:[id number] [] levonorgestrel 21 mcg/24hr (up to 8 yrs) 52 mg 1 each intrauterine device (MIRENA)Disp: Rfl: levonorgestrel (MIRENA) 21 mcg/24hr (up to 8 yrs) 52 mg IUD1 each by INTRAUTERINE route as directed.Disp: 1 eachRfl: 0 Prescriptions as of 01/05/2025 - levonorgestrel (MIRENA) 21 mcg/24hr (up to 8 yrs) 52 mg IUD 1 each by INTRAUTERINE route as directed. - escitalopram oxalate (LEXAPRO) 10 mg tablet Take 1 tablet by mouth once daily. - hydrOXYzine pamoate (VISTARIL) 50 mg capsule Take 1 capsule by mouth three times a day as needed for anxiety. - cholecalciferol, vitamin D3, (VITAMIN D3) 100 mcg (4,000 unit) cap Take 1 capsule by mouth twice daily. - levonorgestrel (MIRENA) 20 mcg/24 hr (5 years) IUD 1 Each by INTRAUTERINE route one time only. Problem List As Of Date (more content not included)... Normal [facility] UA DIP,URINE HCG (POC)on Beta HCG ( test) Ql (U) Negative Negative [facility] Comment on above: Location:[facility], [address] [place], [address] [employer] (POCT) Internal [facility] Location:[facility], [address], [place], [place], [id number] [place] [address] POINT OF CARE [facility] CNOVon 12-10-2024 CNOV Office Visit (OBGYWM ) LIANNE SPARKS ([id number]) 1985 F Date Time Provider Department 12/10/24 2:20 PM TIFFANIE PRYOR OBEMILEE During your visit today, we recorded the following information about you: Blood pressure Weight Height 120/80 82.6 kg 1.575 m Tiffanie Pryor MD 12/10/2024 3:00 PM Signed Spinneret Cleaner offered: Patient declinesGerardo Abdalla is a 39 year old who presents for an annual gynecologic exam without complaints. IUD would like a new one. Not currently sexually active. Partner oversees in the Age at Menarche: 18 Still get period: No LMP: n/a Menses: no menses - Mirena IUD Menstrual flow: N/A Bleeding amount bothersome: N/A Bleeding between periods: N/A Period symptoms: None Sexually active: No Time with current partner: N/A Contraception: IUD Contraception frequency: Always HPV vaccine: No HPV:negative Last pap smear: 05/15/2022, normal History of abnormal pap: Yes Colposcopy: No. Leep: No. Cone biopsy: No. Bothersome pelvic pain: No Last mammogram: unsure OB History Gravida2 Para2 Term0 Preterm2 AB0 Living2 SAB0 IAB0 Ectopic0 Multiple0 Live Births2 FAMILY HISTORY Problem Relation Age of Onset No Known Problems Mother No Known Problems Father other (marfans) Half-sister Hypertension Maternal Grandmother Heart Maternal Grandmother No Known Problems Maternal Grandfather No Known Problems Paternal Grandmother No Known Problems Paternal Grandfather SOCIAL HISTORY Social History Tobacco Use Smoking status: Never Smokeless tobacco: Never Vaping Use Vaping status: Former Substance Use Topics Alcohol use: No Drug use: Not Currently Types: Marijuana REVIEW OF SYSTEMS Abdomen: No abdominal pain, nausea, vomiting, diarrhea, or constipation. No bloating, early satiety, indigestion, or increased flatulence. Bladder: No dysuria, gross hematuria, urinary frequency, urinary urgency, or incontinence. Breast: No breast lumps, nipple d/c, overlying skin changes, redness or skin retraction. Allergies and current medication updated:Yes SENSITIVE EXAM: The sensitive examination was discussed with the Patient or Patient's Authorized Arbitrator. As applicable, any other physician, advance practice provider, medical student, or other health professional student that will be observing or involved in the sensitive examination for educational or training purposes was discussed with the Patient or Authorized Arbitrator. The Patient or Authorized Arbitrator has agreed to proceed with the sensitive examination. (Sensitive examination includes inspection and/or palpation of the breasts, pelvis, prostate and anorectal regions). EXAM: BP 120/80 Ht 5' 2 (1.58m) Wt 182 lb 3.2 oz (82.6kg) LMP 12/05/2015 BMI 33.32 kg/(m2). GENERAL: pleasant, female in no apparent distress HEENT: Normocephalic, atraumatic, mucus membranes moist, and no lesions NECK: Supple, full range of motion, no adenopathy, and thyroid normal DERMATOLOGY: Normal, without lesions, non-icteric, and non-hirsute BREAST: soft, non-tender, symmetric, no dominant mass, normal nipple-areolar complex, no lymphadenopathy, and no nipple discharge CHEST: Normal inspiratory effort ABDOMEN: soft, non-tender, and no masses PELVIC: external genitalia normal, normal Bartholin's glands, urethra, [place]'s glands, no vulvar lesions, no cervical lesions, good vaginal support, physiologic discharge present, normal appearing perineal body and perianal region, IUD strings visible BIMANUAL: uterus normal size, shape and consistency, no adnexal masses, and non-tender RECTOVAGINAL: deferred. NEURO: alert and oriented x3,exam grossly non-focal EXTREMITIES: normal ASSESSMENT/PLAN: 1) Health maintenance: Pap/HPV up to date. 2) Contraception: IUD. Contraceptive options reviewed and information provided. 3) STD screening: Declined STD check. 4) Follow up one year or sooner as needed Tiffanie Pryor MD Referring Provider: KENA DELANEY [[id number]] Allergies As of Date: 12/10/2024 (No Known Allergies) Date Reviewed: 12/10/2024 Reviewed by: Tiffanie Pryor MD - Fully Assessed Reason for Visit: Well Woman [[id number]] Primary Visit Diagnosis:Encounter for gynecological examination (general) (routine) without abnormal findings [Z01.419] Other Visit Diagnoses:Well woman exam with routine gynecological exam [Z01.419] Encounter for removal and reinsertion of intrauterine contraceptive device (IUD) [Z30.433] Order(s):CONSULT TO FILM WRITER [9021] Order #: [id number]: 1 REMOVE INTRAUTERINE DEVICE [38200NYO] Order #: [id number] INSERT INTRAUTERINE DEVICE [5532730] Order #: [id number] Prescriptions as of 12/10/2024 - escitalopram oxalate (LEXAPRO) 10 mg tablet Take 1 tablet by mouth once daily. - hydrOXYzine pamoate (VISTARIL) 50 mg capsule (more content not included)... Normal [facility] CNOVon 11-25-2024 CNOV Office Visit (FAMWS ) LIANNE SPARKS ([id number]) 1985 F Date Time Provider Department 11/25/24 10:00 AM KENA DELANEY [facility] During your visit today, we recorded the following information about you: Pulse Respiration Blood pressure Weight 76/minute 18/minute 104/70 81.3 kg Height 1.575 m Kena Delaney MD 11/25/2024 10:45 AM Signed Chief Complaint Patient presents with: Wellness HPI Lianne M Tish is a 39 year old female who presents here today for an annual visit. Pt here today for a routine follow up. Pt last seen in office on 05/30/23. Has not been seen by this office since 2009. GI/Uro - Denies any stomach, bowel or urinary issues. Cardio - Denies any chest pain, sob, or dizziness. Diet/Exercise - Eats a well balanced diet. Exercises by dancing, walking, and using infinity hoop. Depression/Anxiety - Overall depression and anxiety are stable with use of Lexapro 10 mg once daily and Hydroxyzine prn. Feels maybe one of the medications may make her sleepy, but is stable with taking. Admits she's been out of her medication since the beginning of the year. Thought she was doing okay without it, but realized she probably should take it and needed to follow up sooner. No counseling at this time. Discussed with Shelly Tannhof, SHIPPING ASSOCIATE at previous Wellness visit in 2022 that her Mirena needs replaced. Was advised to f/u with TORCH SHEARER. Last Seen by Yasmine Bobby in 2021. Pt unable to recall who she last seen and states she needs this replaced. HM - Declines Covid/Flu vaccine. Declines Hep C screening. Past medical history, appointments, medications, allergies reviewed. Previous Medical History PAST MEDICAL HISTORY Diagnosis Date Depression Depression 05/24/2022 Previous Surgical History PAST SURGICAL HISTORY Procedure Laterality Date MIRENA 09/20/2015 NONE Family History FAMILY HISTORY Problem Relation Age of Onset Hypertension Maternal Grandmother Heart Maternal Grandmother Patient Allergies ALLERGIES No Known Allergies Current Medications Current Outpatient Medications on File Prior to Visit Medication Sig escitalopram oxalate (LEXAPRO) 10 mg tablet Take 1 tablet by mouth once daily. cholecalciferol, vitamin D3, (VITAMIN D3) 100 mcg (4,000 unit) cap Take 1 capsule by mouth twice daily. levonorgestrel (MIRENA) 20 mcg/24 hr (5 years) IUD 1 Each by INTRAUTERINE route one time only. No current facility-administered medications on file prior to visit. Social History Social History Tobacco Use Smoking status: Never Smokeless tobacco: Never Vaping Use Vaping status: Former Substance Use Topics Alcohol use: No Drug use: Not Currently Types: Marijuana EXAM: BP 104/70 (BP Site: Left Arm, BP Position: Sitting, BP Cuff Size: Regular Adult) Pulse 76 Resp 18 Ht 157.5 cm (5' 2) Wt 81.3 kg (179 lb 3.7 oz) LMP 12/05/2015 BMI 32.78 kg/m? General Appearance: Well appearing, alert, in no acute distress, well-hydrated, well nourished.. Lungs: Lungs clear to auscultation. No wheezing, rhonchi, rales.. Heart: RRR without murmur, gallop, or rubs. No ectopy. Health Maintenance List Anxiety Screening Never done Hepatitis C Screening Never done Influenza Vaccine(1) due on 05/04/2024 Covid-19 Vaccine( - season) Never done DTaP,Tdap,Td Vaccine(9 - Td or Tdap) due on 06/23/2025 Cervical Cancer Screening due on 05/15/2027 Hepatitis B Vaccine Completed HIV Screening Completed Data reviewed None ASSESSMENT/PLAN: 1. Wellness examination - ICD9: V70.0, ICD10: Z00.00 (primary diagnosis) - Counseled on healthy diet and regular exercise 2. Current moderate episode of major depressive disorder, unspecified whether recurrent (HCC) - ICD9: 296.22, ICD10: F32.1 Continue current medications. - ESCITALOPRAM 10 MG TABLET - HYDROXYZINE PAMOATE 50 MG CAPSULE 3. Well woman exam with routine gynecological exam - ICD9: V72.31, ICD10: Z01.419 - CONSULT TO FILM WRITER 4. Encounter for screening examination for other mental health and behavioral disorders - ICD9: V79.8, ICD10: Z13.39 - ANXIETY SCREENING Follow up in 6 months Kena Delaney MD Allergies As of Date: 11/25/2024 (No Known Allergies) Date Reviewed: 11/25/2024 Reviewed by: Abhi Rivera MA - Fully Assessed Reason for Visit: Wellness [440] Primary Visit Diagnosis:Wellness examination [Z00.00] Other Visit Diagnoses:Current moderate episode of major depressive disorder, unspecified whether recurrent (HCC) [F32.1] Well woman exam with routine gynecological exam [Z01.419] Encounter for screening examination for other mental health and behavioral disorders [Z13.39] Order(s):escitalopram oxalate (LEXAPRO) 10 mg tabletTake 1 tablet by mouth once daily.Disp: 30 tabletRfl: 11 ANXIETY SCREENING [[id number]] Order #: [id number]: 1 hydrOXYzine pamoate (VISTARIL) 50 (more content not included)... Normal [facility] 11-24-2024 [facility] Telephone (FAMPWS) LIANNE SPARKS ([id number]) 1985 F Date Time Provider Department 11/24/24 KENA DELANEY During your visit today, we recorded the following information about you: Abhi Rivera MA 11/24/2024 4:05 PM Signed Called and LM on VM for pt to return call to office regarding upcoming appt with PCP tomorrow at 10:00 am. PCP does not do TORCH SHEARER care or vaginal exams or Mirena changes. Pt needs to f/u with TORCH SHEARER for her routine care or we can refer her. However, she is due for her routine Wellness visit, which we can complete. since she's not been seen since 05/2023. CAT Zhao Rilee, MA 11/25/2024 12:15 PM Signed Pt seen in office today and given consult to FILM WRITER. Abhi Rivera MA Allergies As of Date: 11/24/2024 (No Known Allergies) Date Reviewed: 03/10/2024 Reviewed by: Kenia Bertrand LPN - Fully Assessed Reason for Visit: Appointment [186] Prescriptions as of 11/25/2024 - escitalopram oxalate (LEXAPRO) 10 mg tablet Take 1 tablet by mouth once daily. - hydrOXYzine pamoate (VISTARIL) 50 mg capsule Take 1 capsule by mouth three times a day as needed for anxiety. - cholecalciferol, vitamin D3, (VITAMIN D3) 100 mcg (4,000 unit) cap Take 1 capsule by mouth twice daily. - levonorgestrel (MIRENA) 20 mcg/24 hr (5 years) IUD 1 Each by INTRAUTERINE route one time only. Problem List As Of Date 11/24/2024 Noted Resolved Dermatophytosis of nail [B35.1] 07/17/2005 08/13/2014 Pain in joint, ankle and foot [M25.579] 05/16/2008 08/13/2014 Late care [O09.30] 08/13/2014 12/18/2014 Rubella non-immune status, antepartum [O09.899,*08/18/2014 12/18/2014 Supervision of other normal [Z34.80] 09/10/2014 12/18/2014 Supervision of other high risk , antep*04/05/2015 12/15/2015 Late care affecting [O09.30] 04/05/2015 12/15/2015 Previous delivery in second trimester, *05/03/2015 12/15/2015 Lost custody of children [Z65.3] 06/01/2015 12/15/2015 Class 1 obesity due to excess calories without *05/24/2022 Depression [F32.A] 05/24/2022 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 Kena Delaney MD Status:REG ER Location: ED HPI History of Present Illness Chief Complaint: Rash Informant: patient and spouse/S.O. Onset/Context/Timing Onset: Days Context: Gradual Onset Timing: Continuous Current Severity: Mild Maximum Severity: Mild Narrative Narrative: 36-year-old female no seen past medical history was doing a lot of yard work at home they were cleaning bushes etc. and the last 4 days she has had a red itchy rash on her right arm. She has had this before secondary to allergic reaction. Was treated with steroids that resolved. She denies any other complaints. Prior similar symptoms: Yes Recent Illness/Hospitalizati on: No PFSH PFSH Medical History Depression no medical history Home Medications escitalopram oxalate 10 mg tablet 10 mg PO DAILY 02/15/22 [History Last Taken Unknown] prednisone 20 mg tablet 40 mg PO DAILY 10 days #20 tabs 04/05/22 [Rx Last Taken Unknown] Allergy/AdvReac Type Severity Reaction Status Date / Time No Known Allergies Allergy Verified 04/05/22 21:48 Family History no significant family his no significant family history Social History Smoking Status: Never smoker ROS ROS ED Review of Systems ROS Unobtainable: Denies due to encephalopathy Constitutional Constitutional ED: Denies chills or fever(s) Eyes Eyes: Denies blurry vision ENT ENT ED: Denies ear pain Cardiovascular Cardiovascular: Denies chest pain Respiratory/Chest Respiratory/Chest: Denies cough or dyspnea Gastrointestinal Gastrointestinal: Denies abdominal pain Genitourinary Genitourinary ED: Denies dysuria or hematuria Musculoskeletal Musculoskeletal: Denies arthralgias Integumentary Denies abscess or Abrasions Neurologic Neurologic: Denies headache(s) Psychiatric Psychiatric: Denies anxiety or depression Endocrine Endocrinology: Denies cold intolerance Hematologic/Lymphatic Hematologic/Lymphatic : Reports none Allergic/Immunologic Allergic/Immunologic ED: Denies mouth swelling or tongue swelling EXAM Physical Exam Narrative Exam Narrative: 36-year-old no acute distress vital signs stable afebrile. HEENT exam unremarkable. Lungs are clear. Heart regular rhythm. Abdomen soft nontender. Moving all 4 extremities. Right forearm and upper arm she has a rash consistent with poison mk or contact dermatitis. There is no folliculitis. No cellulitis. No axillary lymphadenopathy. No streaks. No abscesses. Otherwise exam benign. Const Vital Signs: 04/05/22 21:46 Temperature 98.2 F Temperature Source Temporal Pulse Rate 81 Respiratory Rate 15 Blood Pressure 116/73 Blood Pressure Mean 87 Pulse Ox 98 Oxygen Delivery Method Room Air Positive well nourished and well developed; Negative for obese, cachectic, contractures or unkempt General Appearance ED: well developed and NAD; Negative for unkempt, cachectic, contractures, cyanotic or pallor Nutritional Appearance: Negative for cachectic or obese HEENT Reports moist mucous membranes; Denies dry mucous membranes Negative for trauma Mouth ED: No dry mucous membranes Mouth: No dry mucous membranes Eyes PERRL and EOMs intact bilaterally General Eye ED: Negative for pale conjunctiva or scleral icterus Neck no lymphadenopathy, supple and no JVD General: Negative for tenderness Lymph Lymphatic: Negative for other Chest Wall inspection of chest normal Chest: Negative for other Resp normal respiratory effort and clear to auscultation bilaterally Effort and Inspection: Negative for retractions Auscultation: Negative for rales, rhonchi or wheezes Cardio regular rate, regular rhythm, S1 normal heart sound, S2 normal heart sound and no murmurs Palpation: Negative for palpable S3 Rate: Negative for bradycardia Rhythm: Negative for abnormal rhythm GI normal to inspection, nondistended, normoactive bowel sounds, non-tender, non-distended and no masses Inspection: Negative for abdominal distention Auscultation: normoactive bowel sounds Palpation: soft; Negative for tender, guarding, splenomegaly or mass Back/Spine no CVA tenderness General Back: Negative for CVA tenderness Cervical Spine: Negative for cervical spine tenderness Thoracic Spine / Upper Back: Negative for thoracic spinal tenderness Lumbar Spine / Lower Back: Negative for lumbar spinal tenderness Extremity normal to inspection Extremity Narrative: Except for contact dermatitis rash right forearm and upper (more content not included)... Normal [facility] Emergency Department Summary on 02-16-2022 Emergency Department Summary [facility] Medical Records Department [address] [place] [address] Emergency Department Summary 02/15/22 MR#: [id number] Acct: [id number] Name: LIANNE SPARKS Rep #: [id number] : 1985 36 From: Larry Mcmahan DO PCP: Dr. Kena Delaney MD Status:DEP ER Location: ED HPI History of Present Illness Chief Complaint: Rash Narrative Narrative: Patient is a 36-year-old female who states that 2 days ago she was working out [place]. She states that in the last days she has noticed a red itchy rash across her arms and face. She states nowhere else does she have the rash and she denies any other exposures other than working outside. She states she is concerned she is developed poison mk and secondary to this comes in for evaluation. [facility] Medical History Depression Home Medications escitalopram oxalate 10 mg tablet 10 mg PO DAILY 02/15/22 [History Last Taken Unknown] Allergy/AdvReac Type Severity Reaction Status Date / Time No Known Allergies Allergy Verified 01/03/21 15:58 Social History Smoking Status: Never smoker ROS [facility] ED Constitutional Constitutional ED: Denies chills or fever(s) ENT ENT ED: Denies sore throat Cardiovascular Cardiovascular: Denies chest pain Respiratory/Chest Respiratory/Chest: Denies cough or dyspnea Gastrointestinal Gastrointestinal: Denies abdominal pain, diarrhea, nausea or vomiting Genitourinary Genitourinary ED: Denies dysuria Musculoskeletal Musculoskeletal: Denies myalgias Integumentary Reports rash Neurologic Neurologic: Denies headache(s) Hematologic/Lymphatic Hematologic/Lymphatic : Denies easy bleeding or easy bruising EXAM Physical Exam Const Vital Signs: 02/15/22 01:07 02/15/22 05:39 Temperature 97.2 F L Temperature Source Temporal Pulse Rate 63 72 Respiratory Rate 18 14 Blood Pressure 110/67 133/71 H Blood Pressure Mean 81 Pulse Ox 99 96 Oxygen Delivery Method Room Air Positive well nourished and well developed General Appearance ED: well developed HEENT Reports moist mucous membranes HEENT Narrative: No tongue or lip swelling no oral lesions no airway edema or compromise Eyes PERRL and EOMs intact bilaterally Neck supple Resp normal respiratory effort and clear to auscultation bilaterally Cardio regular rate and regular rhythm Extremity normal to inspection Neuro oriented x3 and CN's II-XII intact bilaterally Sensorium / Orientation: alert Psych mental status grossly normal Skin Skin Narrative: Erythematous vesicular rash in Kebner's line pattern to the bilateral arms as well as irritation across the cheek and forehead consistent with contact dermatitis. No involvement of the palms or soles. No involvement underneath the clothing line. No secondary changes to suggest infection MDM MDM MDM Narrative Medical decision making narrative: Patient presented to the ER afebrile with no signs of respiratory distress. Her history and exam is consistent with contact dermatitis. As she does not have signs of respiratory distress or secondary infection I do not feel there is need for work-up. Patient will be given Kenalog shot in the ER secondary to her symptoms and will be placed on a prednisone taper for home but is otherwise safe for discharge Discharge Plan Triage Chief Complaint: Rash ED Provider: Larry Mcmahan Dx/Rx/DC Orders Clinical Impression: Contact dermatitis Prescriptions: No Action escitalopram oxalate 10 mg tablet 10 mg PO DAILY Label Comments: Take 1 tablet by mouth once daily. Primary Care Provider: Kena Delaney Referrals: Kena Delaney MD [Primary Care Provider] - Disposition Disposition: Home, Self Care Discharge Date/Time: 02/15/22 02:50 What to do if you have Problems For any increased pain, shortness of breath, bleeding, nausea or vomiting, chest pain, or any unexpected problems, contact your Primary Care Provider. Call [facility] ([phone]) or report to the closest Emergency Room. Call 911 if necessary. 02/15/22 2311 Cosigner Signature (if applicable): CC: Dr. Kena Delaney MD Signed Normal [facility] Vital Signs Date Time Vital Sign Value Performing Clinician Facility 04-28-2025 15:36-0400 Body mass index (BMI) [Ratio] 33.59 kg/m2 Wendy Praisler-Wood NUMERICAL CONTROL DRILL PRESS OPERATOR.SHIPPING ASSOCIATE Work Phone: [facility] 04-28-2025 15:36-0400 Body temperature 98.01 [degF] Wendy Praisler-Wood NUMERICAL CONTROL DRILL PRESS OPERATOR.SHIPPING ASSOCIATE Work Phone: [facility] 04-28-2025 15:36-0400 Body weight 83.3 kg Wendy Praisler-Wood NUMERICAL CONTROL DRILL PRESS OPERATOR.SHIPPING ASSOCIATE Work Phone: [facility] 04-28-2025 15:36-0400 Diastolic blood pressure 74 mm[Hg] Wendy Praisler-Wood NUMERICAL CONTROL DRILL PRESS OPERATOR.SHIPPING ASSOCIATE Work Phone: [facility] 04-28-2025 15:36-0400 Heart rate 76 /min Wendy Praisler-Wood NUMERICAL CONTROL DRILL PRESS OPERATOR.SHIPPING ASSOCIATE Work Phone: [facility] 04-28-2025 15:36-0400 Respiratory rate 16 /min Wendy Praisler-Wood NUMERICAL CONTROL DRILL PRESS OPERATOR.SHIPPING ASSOCIATE Work Phone: [facility] 04-28-2025 15:36-0400 SaO2% (BldA) [Mass fraction] 98 % Wendy Praisler-Wood NUMERICAL CONTROL DRILL PRESS OPERATOR.SHIPPING ASSOCIATE Work Phone: [facility] 04-28-2025 15:36-0400 Systolic blood pressure 122 mm[Hg] Wendy Praisler-Wood NUMERICAL CONTROL DRILL PRESS OPERATOR.SHIPPING ASSOCIATE Work Phone: [facility] 01-05-2025 10:02-0400 Body mass index (BMI) [Ratio] 34.02 kg/m2 Tiffanie Pryor MD Work Phone: [facility] 01-05-2025 10:02-0400 Body weight 84.37 kg Tiffanie Pryor MD Work Phone: [facility] 01-05-2025 10:02-0400 Diastolic blood pressure 64 mm[Hg] Tiffanie Pryor MD Work Phone: [facility] 01-05-2025 10:02-0400 Systolic blood pressure 110 mm[Hg] Tiffanie Pryor MD Work Phone: [facility] 12-10-2024 14:09-0400 Body height 157.5 cm Tiffanie Pryor MD Work Phone: [facility] 12-10-2024 14:09-0400 Body mass index (BMI) [Ratio] 33.32 kg/m2 Tiffanie Pryor MD Work Phone: [facility] 12-10-2024 14:09-0400 Body weight 82.64 kg Tiffanie Pryor MD Work Phone: [facility] 12-10-2024 14:09-0400 Diastolic blood pressure 80 mm[Hg] Tiffanie Pryor MD Work Phone: [facility] 12-10-2024 14:09-0400 Systolic blood pressure 120 mm[Hg] Tiffanie Pryor MD Work Phone: [facility] 11-25-2024 09:53-0400 Body height 157.5 cm Kena Delaney MD Work Phone: [facility] 11-25-2024 09:53-0400 Body mass index (BMI) [Ratio] 32.78 kg/m2 Kena Delaney MD Work Phone: [facility] 11-25-2024 09:53-0400 Body weight 81.3 kg Kena Delaney MD Work Phone: [facility] 11-25-2024 09:53-0400 Diastolic blood pressure 70 mm[Hg] Kena Delaney MD Work Phone: [facility] 11-25-2024 09:53-0400 Heart rate 76 /min Kena Delaney MD Work Phone: [facility] 11-25-2024 09:53-0400 Respiratory rate 18 /min Kena Delaney MD Work Phone: [facility] 11-25-2024 09:53-0400 Systolic blood pressure 104 mm[Hg] Kena Delaney MD Work Phone: [facility] 03-10-2024 15:49-0400 Body mass index (BMI) [Ratio] 35.63 kg/m2 Brooke Willson APRN.SHIPPING ASSOCIATE Work Phone: [facility] 03-10-2024 15:49-0400 Body temperature 98.6 [degF] Brooke Willson APRN.SHIPPING ASSOCIATE Work Phone: [facility] 03-10-2024 15:49-0400 Body weight 84.5 kg Brooke Willson APRN.SHIPPING ASSOCIATE Work Phone: [facility] 03-10-2024 15:49-0400 Diastolic blood pressure 74 mm[Hg] Brooke Willson APRN.SHIPPING ASSOCIATE Work Phone: [facility] 03-10-2024 15:49-0400 Heart rate 75 /min Brooke Willson APRN.SHIPPING ASSOCIATE Work Phone: [facility] 03-10-2024 15:49-0400 Respiratory rate 18 /min Brooke Willson APRN.SHIPPING ASSOCIATE Work Phone: [facility] 03-10-2024 15:49-0400 SaO2% (BldA) [Mass fraction] 97 % Brooke Willson APRN.SHIPPING ASSOCIATE Work Phone: [facility] 03-10-2024 15:49-0400 Systolic blood pressure 128 mm[Hg] Brooke Willson APRN.SHIPPING ASSOCIATE Work Phone: [facility] 02-25-2024 17:29-0400 Body mass index (BMI) [Ratio] 35.21 kg/m2 Khris Johnson MD Work Phone: [facility] 02-25-2024 17:29-0400 Body temperature 98.01 [degF] Khris Johnson MD Work Phone: [facility] 02-25-2024 17:29-0400 Body weight 83.5 kg Khris Johnson MD Work Phone: [facility] 02-25-2024 17:29-0400 Diastolic blood pressure 64 mm[Hg] Khris Johnson MD Work Phone: [facility] 02-25-2024 17:29-0400 Heart rate 86 /min Khris Johnson MD Work Phone: [facility] 02-25-2024 17:29-0400 Respiratory rate 16 /min Khris Johnson MD Work Phone: [facility] 02-25-2024 17:29-0400 SaO2% (BldA) [Mass fraction] 97 % Khris Johnson MD Work Phone: [facility] 02-25-2024 17:29-0400 Systolic blood pressure 106 mm[Hg] Khris Johnson MD Work Phone: [facility] 2023 12:59-0400 Body height 154 cm Shelly Tannhof NUMERICAL CONTROL DRILL PRESS OPERATOR.SHIPPING ASSOCIATE Work Phone: [facility] 2023 12:59-0400 Body weight 84.37 kg Shelly Tannhof NUMERICAL CONTROL DRILL PRESS OPERATOR.SHIPPING ASSOCIATE Work Phone: [facility] 2023 12:59-0400 Diastolic blood pressure 70 mm[Hg] Shelly Tannhof NUMERICAL CONTROL DRILL PRESS OPERATOR.SHIPPING ASSOCIATE Work Phone: [facility] 2023 12:59-0400 Heart rate 94 /min Shelly Tannhof NUMERICAL CONTROL DRILL PRESS OPERATOR.SHIPPING ASSOCIATE Work Phone: [facility] 2023 12:59-0400 Respiratory rate 20 /min Shelly Tannhof NUMERICAL CONTROL DRILL PRESS OPERATOR.SHIPPING ASSOCIATE Work Phone: [facility] 2023 12:59-0400 SaO2% (BldA) [Mass fraction] 96 % Shelly Tannhof NUMERICAL CONTROL DRILL PRESS OPERATOR.SHIPPING ASSOCIATE Work Phone: [facility] 2023 12:59-0400 Systolic blood pressure 110 mm[Hg] Shelly Tannhof NUMERICAL CONTROL DRILL PRESS OPERATOR.SHIPPING ASSOCIATE Work Phone: [facility] 05-15-2022 14:20-0400 Body height 154.9 cm Yasmine Bobby NUMERICAL CONTROL DRILL PRESS OPERATOR.CNM Work Phone: [facility] 05-15-2022 14:20-0400 Body weight 78.93 kg Yasmine Hawkinsts NUMERICAL CONTROL DRILL PRESS OPERATOR.CNM Work Phone: [facility] 05-15-2022 14:20-0400 Diastolic blood pressure 78 mm[Hg] Yasmine Plotts NUMERICAL CONTROL DRILL PRESS OPERATOR.CNM Work Phone: [facility] 05-15-2022 14:20-0400 Systolic blood pressure 118 mm[Hg] Yasmine Plotts NUMERICAL CONTROL DRILL PRESS OPERATOR.CNM Work Phone: [facility] 05-09-2022 14:08-0400 Body height 154.3 cm Tricia Older NUMERICAL CONTROL DRILL PRESS OPERATOR.SHIPPING ASSOCIATE Work Phone: [facility] 05-09-2022 14:08-0400 Body weight 78.93 kg Tricia Older NUMERICAL CONTROL DRILL PRESS OPERATOR.SHIPPING ASSOCIATE Work Phone: [facility] 05-09-2022 14:08-0400 Diastolic blood pressure 72 mm[Hg] Tricia Older NUMERICAL CONTROL DRILL PRESS OPERATOR.SHIPPING ASSOCIATE Work Phone: [facility] 05-09-2022 14:08-0400 Heart rate 89 /min Tricia Older NUMERICAL CONTROL DRILL PRESS OPERATOR.SHIPPING ASSOCIATE Work Phone: [facility] 05-09-2022 14:08-0400 Respiratory rate 12 /min Tricia Older NUMERICAL CONTROL DRILL PRESS OPERATOR.SHIPPING ASSOCIATE Work Phone: [facility] 05-09-2022 14:08-0400 SaO2% (BldA) [Mass fraction] 96 % Tricia Older NUMERICAL CONTROL DRILL PRESS OPERATOR.SHIPPING ASSOCIATE Work Phone: [facility] 05-09-2022 14:08-0400 Systolic blood pressure 104 mm[Hg] Tricia Older NUMERICAL CONTROL DRILL PRESS OPERATOR.SHIPPING ASSOCIATE Work Phone: [facility] 04-05-2022 21:46-0400 Body height 165.1 cm [facility] Work Phone: 04-05-2022 21:46-0400 Body mass index (BMI) [Ratio] 29.1 kg/m2 [facility] Work Phone: 04-05-2022 21:46-0400 Body temperature 98.2 [degF] [facility] Work Phone: 04-05-2022 21:46-0400 Body weight 79.4 kg [facility] Work Phone: 04-05-2022 21:46-0400 Diastolic blood pressure 73 mm[Hg] [facility] Work Phone: 04-05-2022 21:46-0400 Heart rate 81 /min [facility] Work Phone: 04-05-2022 21:46-0400 Respiratory rate 15 /min [facility] [facility] Work Phone: 04-05-2022 21:46-0400 SaO2% (BldA) [Mass fraction] 98 % [facility] Work Phone: 04-05-2022 21:46-0400 Systolic blood pressure 116 mm[Hg] [facility] Work Phone: 02-15-2022 05:39-0400 Diastolic blood pressure 71 mm[Hg] [facility] Work Phone: 02-15-2022 05:39-0400 Heart rate 72 /min [facility] Work Phone: 02-15-2022 05:39-0400 Respiratory rate 14 /min [facility] Work Phone: 02-15-2022 05:39-0400 SaO2% (BldA) [Mass fraction] 96 % [facility] Work Phone: 02-15-2022 05:39-0400 Systolic blood pressure 133 mm[Hg] [facility] Work Phone: 02-15-2022 01:07-0400 Body height 165.1 cm [facility] Work Phone: 02-15-2022 01:0400 Body mass index (BMI) [Ratio] 31.5 kg/m2 [facility] Work Phone: 02-15-2022 [id number] Body temperature 97.2 [degF] [facility] Work Phone: 02-15-2022 01:0400 Body weight 86 kg [facility] Work Phone: Encounters Encounter Date Encounter Type Care Provider Facility Start: 04-28-2025 End: 04-28-2025 Patient encounter procedure Wendy Euceda APRN.SHIPPING ASSOCIATE Work Phone: [facility] [place] Comment on above: Sprain of right knee , unspecified ligament, initial encounter (Primary Dx) Start: 04-28-2025 End: 04-29-2025 [place]ulatory [place] Facility:[facility] Start: 01-05-2025 End: 01-05-2025 Patient encounter procedure Tiffanie Pryor MD Work Phone: OB/Gynecology Comment on above: Encounter for remova l and reinsertion of intrauterine contraceptive device (IUD) (Primary Dx); Encounter for IUD insertion Start: 01-05-2025 End: 01-05-2025 ambulatory TIFFANIE PRYOR Facility:[facility] Start: 12-10-2024 End: 12-10-2024 ambulatory TIFFANIE PRYOR Facility:[facility] Start: 12-10-2024 End: 12-10-2024 Patient encounter procedure Tiffanie Pryor MD Work Phone: [facility] Start: 12-10-2024 End: 12-10-2024 Patient encounter status Tiffanie Pryor MD Work Phone: [facility] Start: 12-10-2024 End: 12-10-2024 Periodic preventive med est patient 18-39 yrs Tiffanie Pryor MD Work Phone: OB/Gynecology Comment on above: Encounter for gyneco logical examination (general) (routine) without abnormal findings (Primary Dx); Well woman exam with routine gynecological exam; Encounter for removal and reinsertion of intrauterine contraceptive device (IUD) Start: 11-25-2024 End: 11-25-2024 ambulatory KENA DELANEY Facility:[facility] Start: 11-25-2024 End: 11-25-2024 Patient encounter procedure Kena Delaney MD Work Phone: [facility] [place] Comment on above: Wellness examination (Primary Dx); Current moderate episode of major depressive disorder, unspecified whether recurrent (HCC); Well woman exam with routine gynecological exam; Encounter for screening examination for other mental health and behavioral disorders Start: 11-25-2024 End: 11-25-2024 Patient encounter status Kena Delaney MD Work Phone: [facility] Start: 11-24-2024 End: 11-25-2024 Telephone encounter Kena Delaney MD Work Phone: [facility] [place] Comment on above: Appointment Start: 03-10-2024 End: 03-10-2024 Patient encounter procedure Brooke Willson APRN.SHIPPING ASSOCIATE Work Phone: [facility] Comment on above: Cellulitis of skin ( Primary Dx); Swelling Start: 02-25-2024 End: 02-25-2024 Patient encounter procedure Khris Johnson MD Work Phone: [facility] Comment on above: Sore throat (Primary Dx) Start: 2023 End: 2023 Patient encounter procedure Shelly Medellin APRN.SHIPPING ASSOCIATE Work Phone: [facility] Comment on above: Wellness examination (Primary Dx); Current moderate episode of major depressive disorder, unspecified whether recurrent (HCC); Skin lesion; Eczema, unspecified type; Screening cholesterol level Start: 2023 End: 2023 Patient encounter status Shelly Medellin APRN.SHIPPING ASSOCIATE Work Phone: [facility] Work Phone: Start: 05-30-2022 Telephone encounter Yasmine villegas APRN.CNM Work Phone: OB/Gynecology Comment on above: Results Start: 05-15-2022 End: 05-15-2022 Patient encounter procedure Yasmine Bobby NUMERICAL CONTROL DRILL PRESS OPERATOR.CNM Work Phone: OB/Gynecology Comment on above: Encounter for gyneco logical examination (general) (routine) without abnormal findings (Primary Dx); Screening for cervical cancer; Encounter for screening for human papillomavirus (HPV); Encounter for IUD removal and reinsertion Start: 05-15-2022 End: 05-15-2022 Patient encounter status Yasmine Bobby NUMERICAL CONTROL DRILL PRESS OPERATOR.CNM Work Phone: OB/Gynecology Start: 05-09-2022 End: 05-09-2022 Patient encounter procedure Tricia Castillo NUMERICAL CONTROL DRILL PRESS OPERATOR.SHIPPING ASSOCIATE Work Phone: [facility] [place] Comment on above: Wellness examination (Primary Dx); Depression, unspecified depression type; Contact dermatitis, unspecified contact dermatitis type, unspecified trigger; Special screening examination for viral disease Start: 05-09-2022 End: 05-09-2022 Patient encounter status Tricia Castillo NUMERICAL CONTROL DRILL PRESS OPERATOR.SHIPPING ASSOCIATE Work Phone: [facility] [place] Start: 04-05-2022 End: 04-05-2022 [facility] Start: 02-15-2022 End: 02-15-2022 [facility] Procedures Date Procedure Procedure Detail Performing Clinician Start: 01-05-2025 UA DIP,URINE HCG (POC) Tiffanie Pryor MD Work Phone: Start: 02-25-2024 STREP A MOLECULAR (POC) Radha Veliz PA-C Work Phone: Start: 05-09-2022 Adult depression screening assessment Tricia Castillo APRN.SHIPPING ASSOCIATE Work Phone: Plan of Treatment Date Care Activity Detail Author Start: 05-15-2027 HPV TESTING HPV TESTING [facility] Start: 05-15-2027 PAP TESTING PAP TESTING [facility] Start: 05-15-2027 Screening for malign ant neoplasm of cervix Cervical Cancer Screening [facility] Start: 11-25-2025 Anxiety Screening Anxiety Screening [facility] Start: 11-25-2025 Covid-19 Vaccine ( season) Covid-19 Vaccine () [facility] Comment on above: Postponed from 05/04 (Declined at this time) Start: 11-25-2025 Hepatitis C screening Hepatitis C Sc reinier [facility] Comment on above: Postponed from 05/21 (Declined at this time) Start: 06-23-2025 Urine microalbumin profile [facility] Start: 05-28-2025 End: 05-28-2025 Patient encounter procedure 05/28/2025 3:00 PM EDT Office Visit [facility] [address] [place] [address] Kena Delaeny MD [address] [facility], [place] [id number] 6 month f/u Family [facility] Comment on above: 6 month f/u Start: 05-04-2025 Influenza vaccination [facility] Start: 03-02-2025 Influenza vaccination Influenza Vacc ine (#1) [facility] Comment on above: Postponed from 05/04 (Declined at this time) Start: 12-19-2024 End: 12-19-2024 Patient encounter procedure 12/19/2024 11:30 AM EDT Office Visit OB/Gynecology [address] [place] [address] Tiffanie Pryor MD [address] [place] [address] IUD REMOVAL // REPLACMENT [facility] Comment on above: IUD REMOVAL // REPLA CMENT Start: 12-10-2024 End: 12-10-2024 Patient encounter procedure 12/10/2024 2:20 PM EDT Office Visit OB/Gynecology [address] [place], [place] [id number] Tiffanie Pryor MD [address] [place], [place] [id number] Well woman exam with routine gynecological exam [Z01.419] [facility]Gy[facility]cology Comment on above: Well woman exam with routine gynecological exam [Z01.419] Start: 2024 Covid-19 Vaccine (#1) Covid-19 Vacci ne (#1) [facility] Comment on above: Postponed from 11/18 (Declined at this time) Start: 2024 Covid-19 Vaccine (2022- season) Covid-19 Vaccine ( season) [facility] Comment on above: Postponed from 05/04 (Declined at this time) Start: 2024 Hepatitis C Screening Hepatitis C [facility] Comment on above: Postponed from 05/21 (Declined at this time) Start: 2024 Hepatitis C screening Hepatitis C [facility] Comment on above: Postponed from 05/21 (Declined at this time) Start: 2024 HPV Vaccine (3 - 3-d ose series) HPV Vaccine (3 - 3-dose series) [facility] Comment on above: Postponed from 10/18 (Declined at this time) Start: 05-04-2024 Influenza vaccination [facility] Start: 03-02-2024 Influenza vaccination Influenza Vacc ine (#1) [facility] Comment on above: Postponed from 05/04 (Declined at this time) Start: 2023 End: 07-21-2023 Comprehensive metabolic 2000 panel - Serum or Plasma COMP METABOLIC PANEL Lab Routine Wellness examination Expected: 2023, Expires: 07/21/2023 [facility] Work Phone: Comment on above: Expected: 2023 , Expires: 07/21/2023 Start: 2023 End: 07-21-2023 Lipid 1996 panel - Serum or Plasma LIPID PANEL BASIC Lab Routine Screening cholesterol level Expected: 2023, Expires: 07/21/2023 [facility] Work Phone: Comment on above: Expected: 2023 , Expires: 07/21/2023 Start: 05-09-2023 Adult depression screening assessment DEPRESSION SCREENING [facility] Start: 05-09-2023 COVID-19 VACCINE (#1) COVID-19 VACCI NE (#1) [facility] Comment on above: Postponed from 11/18 (Declined at this time) Start: 03-02-2023 Influenza vaccination INFLUENZA (#1) [facility] Comment on above: Postponed from 05/04 (Declined at this time) Start: 05-09-2022 End: 07-09-2022 Comprehensive metabolic 2000 panel - Serum or Plasma COMP METABOLIC PANEL Lab Routine Wellness examination Expected: 05/09/2022, Expires: 07/09/2022 [facility] Work Phone: Comment on above: Expected: 05/09/2022 , Expires: 07/09/2022 Start: 05-09-2022 End: 07-09-2022 Hepatitis C virus Ab [Presence] in Serum HEP C AB IA W/CONF SCRN Lab Routine Special screening examination for viral disease Expected: 05/09/2022, Expires: 07/09/2022 [facility] Work Phone: Comment on above: Expected: 05/09/2022 , Expires: 07/09/2022 Start: 05-09-2022 End: 07-09-2022 Lipid 1996 panel - Serum or Plasma LIPID PANEL BASIC Lab Routine Wellness examination Expected: 05/09/2022, Expires: 07/09/2022 [facility] Work Phone: Comment on above: Expected: 05/09/2022 , Expires: 07/09/2022 Start: 02-01-2021 Medicare Annual Wellness Visit Medicare Annual Wellness Visit [facility] Start: 08-13-2019 PAP TESTING PAP TESTING [facility] Start: 2017 HPV TESTING HPV TESTING [facility] Start: 10-17-2007 HPV Vaccine (3 - 3-d ose series) HPV Vaccine (3 - 3-dose series) [facility] Start: 2005 HEPATITIS C SCREENING HEPATITIS C ME REINIER [facility] Insertion intrauteri ne device iud INSERT INTRAUTERINE DEVICE Procedures Routine Encounter for IUD removal and reinsertion Ordered: 05/15/2022 [facility] Work Phone: Comment on above: Ordered: 05/15/2022 Insertion intrauteri ne device iud INSERT INTRAUTERINE DEVICE Procedures Routine Encounter for removal and reinsertion of intrauterine contraceptive device (IUD) Ordered: 12/10/2024 [facility] Comment on above: Ordered: 12/10/2024 PAP FLUID CERVICAL SCREENING PAP FLUID CERVICAL SCREENING Lab Routine Screening for cervical cancer Encounter for screening for human papillomavirus (HPV) 05/15/2022 3:16 PM EDT [facility] Work Phone: Patient Education ED Contact Oliver matitis ED Poison Mk Rash [facility] Work Phone: Patient referral [facility] Work Phone: Removal intrauterine device iud REMOVE INTRAUTERINE DEVICE Procedures Routine Encounter for removal and reinsertion of intrauterine contraceptive device (IUD) Ordered: 12/10/2024 [facility] Work Phone: Comment on above: Ordered: 12/10/2024 [facility] Immunizations Immunization Date Immunization Notes Care Provider Afia lyons 06-23-2015 tetanus toxoid, redu brandon diphtheria toxoid, and acellular pertussis vaccine, adsorbed Tricai Older NUMERICAL CONTROL DRILL PRESS OPERATOR.SHIPPING ASSOCIATE Work Phone: [facility] 06-01-2015 influenza, injectabl e, quadrivalent, contains preservative Tricia Older NUMERICAL CONTROL DRILL PRESS OPERATOR.SHIPPING ASSOCIATE Work Phone: [facility] 06-01-2015 influenza virus vaccine, unspecified formulation Shelly Medellin NUMERICAL CONTROL DRILL PRESS OPERATOR.SHIPPING ASSOCIATE Work Phone: [facility] 10-07-2014 measles, mumps and rubella virus vaccine [facility] Work Phone: 09-25-2014 influenza, seasonal, injectable Tricia Older NUMERICAL CONTROL DRILL PRESS OPERATOR.SHIPPING ASSOCIATE Work Phone: [facility] 09-17-2014 influenza, seasonal, injectable [facility] Work Phone: 09-17-2014 tetanus toxoid, redu brandon diphtheria toxoid, and acellular pertussis vaccine, adsorbed [facility] Work Phone: 09-10-2014 tetanus toxoid, redu brandon diphtheria toxoid, and acellular pertussis vaccine, adsorbed Tricia Older NUMERICAL CONTROL DRILL PRESS OPERATOR.SHIPPING ASSOCIATE Work Phone: [facility] 06-17-2007 human papilloma viru s vaccine, quadrivalent Tricia Older NUMERICAL CONTROL DRILL PRESS OPERATOR.[facility] Work Phone: [facility] Work Phone: 04-16-2007 hepatitis A vaccine, unspecified formulation Tricia Older NUMERICAL CONTROL DRILL PRESS OPERATOR.SHIPPING ASSOCIATE Work Phone: [facility] Work Phone: 04-16-2007 human papilloma viru s vaccine, quadrivalent Tricia Older NUMERICAL CONTROL DRILL PRESS OPERATOR.SHIPPING ASSOCIATE Work Phone: [facility] Work Phone: 04-16-2007 Meningococcal, MCV4, unspecified conjugate formulation(groups A, C, Y and W-135) Tricia Older NUMERICAL CONTROL DRILL PRESS OPERATOR.[facility] Work Phone: [facility] Work Phone: 04-16-2007 tetanus toxoid, redu brandon diphtheria toxoid, and acellular pertussis vaccine, adsorbed Tricia Older NUMERICAL CONTROL DRILL PRESS OPERATOR.[facility] Work Phone: [facility] Work Phone: 12-08-2004 TD(adult) unspecifie d formulation Tiffanie Pryor MD Work Phone: [facility] 11-28-1999 hepatitis B vaccine, pediatric or pediatric/adolescent dosage Tricia Older NUMERICAL CONTROL DRILL PRESS OPERATOR.SHIPPING ASSOCIATE Work Phone: [facility] Work Phone: 05-23-1999 hepatitis B vaccine, pediatric or pediatric/adolescent dosage Tricia Older NUMERICAL CONTROL DRILL PRESS OPERATOR.SHIPPING ASSOCIATE Work Phone: [facility] Work Phone: 04-04-1999 hepatitis B vaccine, pediatric or pediatric/adolescent dosage Tricia Older NUMERICAL CONTROL DRILL PRESS OPERATOR.SHIPPING ASSOCIATE Work Phone: [facility] Work Phone: 04-04-1999 measles, mumps and rubella virus vaccine Tricia Older NUMERICAL CONTROL DRILL PRESS OPERATOR.SHIPPING ASSOCIATE Work Phone: [facility] Work Phone: 05-12-1993 diphtheria, tetanus toxoids and acellular pertussis vaccine Tricia Older NUMERICAL CONTROL DRILL PRESS OPERATOR.SHIPPING ASSOCIATE Work Phone: [facility] Work Phone: 05-12-1993 trivalent poliovirus vaccine, live, oral Tricia Older NUMERICAL CONTROL DRILL PRESS OPERATOR.[facility] Work Phone: [facility] Work Phone: 05-31-1989 diphtheria, tetanus toxoids and pertussis vaccine Tricia Older NUMERICAL CONTROL DRILL PRESS OPERATOR.[facility] Work Phone: [facility] Work Phone: 05-31-1989 haemophilus influenz ae type b vaccine, HbOC conjugate Tricia Older NUMERICAL CONTROL DRILL PRESS OPERATOR.[facility] Work Phone: [facility] Work Phone: 05-31-1989 measles, mumps and rubella virus vaccine Tricia Older NUMERICAL CONTROL DRILL PRESS OPERATOR.[facility] Work Phone: [facility] Work Phone: 05-31-1989 trivalent poliovirus vaccine, live, oral Tricia Older NUMERICAL CONTROL DRILL PRESS OPERATOR.[facility] Work Phone: [facility] Work Phone: 05-04-1988 diphtheria, tetanus toxoids and pertussis vaccine Tricia Older NUMERICAL CONTROL DRILL PRESS OPERATOR.[facility] Work Phone: [facility] Work Phone: 03-08-1988 diphtheria, tetanus toxoids and pertussis vaccine Tricia Older NUMERICAL CONTROL DRILL PRESS OPERATOR.[facility] Work Phone: [facility] Work Phone: 03-08-1988 trivalent poliovirus vaccine, live, oral Tricia Older NUMERICAL CONTROL DRILL PRESS OPERATOR.SHIPPING ASSOCIATE Work Phone: [facility] Work Phone: 01-05-1988 diphtheria, tetanus toxoids and pertussis vaccine Tricia Older NUMERICAL CONTROL DRILL PRESS OPERATOR.[facility] Work Phone: [facility] Work Phone: 01-05-1988 trivalent poliovirus vaccine, live, oral Tricia Older NUMERICAL CONTROL DRILL PRESS OPERATOR.[facility] Work Phone: [facility] Work Phone: Payers Date Payer Category Payer Unknown [id number] 2021 Medicaid [id number] 2021 Medicare [id number] 2021 Medicare [id number] 2015 Unknown SELF PAY INSURANCE [id number] Self-pay SELF PAY INSURANCE [id number] Unknown SELF PAY INSURANCE [id number] Social History Date Type Detail Facility [facility] Work Phone: Start: 02-15-2022 End: 04-05-2022 Tobacco smoking status NHIS Unknown if ever smoked [facility] Work Phone: Start: 01-03-2021 Non-smoker [facility] Work Phone: Start: 1985 Sex Assigned At Female W [facility] Work Phone: Start: 08-13-2014 Tobacco smoking stat us MNIS Never smoked tobacco [facility] Start: 08-13-2014 Tobacco use and exposure Smokeless tobacco non-user [facility] Start: 05-09-2022 End: 01-05-2025 Alcohol intake Current non-drinker of alcohol (finding) [facility] Start: 1985 Sex Assigned At Not on file [facility] Start: 05-05-2022 End: 05-15-2022 Exposure to SARS-CoV-2 (event) Not sure [facility] Work Phone: Start: 05-10-2023 End: 2023 History of Social function [facility] Work Phone: Start: 05-10-2023 End: 2023 Tobacco use panel [facility] Work Phone: Start: 08-04-2012 Adult Depression Screening Assessment 0 [facility] Work Phone: Functional Status Date Assessment Result Facility 04-05-2015 Are you deaf, or do you have serious difficulty hearing No 04/05/2015 10:17 AM EDT Tali Wolff Ma [facility] 04-05-2015 Are you blind, or do you have serious difficulty seeing, even when wearing glasses No 04/05/2015 10:17 AM EDT Tali Wolff Ma [facility] 04-05-2015 Do you have serious difficulty walking or climbing stairs No 04/05/2015 10:17 AM EDT Tali Wolff Ma [facility] 04-05-2015 Do you have difficul ty dressing or bathing No 04/05/2015 10:17 AM EDT Tali Wolff Ma [facility] 04-05-2015 Because of a physica l, mental, or emotional condition, do you have difficulty doing errands alone such as visiting a physician's office or shopping No 04/05/2015 10:17 AM EDT Tali Wolff Ma Rebekah [facility] Mental Status Date Assessment Result Facility 04-05-2015 Because of a physica l, mental, or emotional condition, do you have serious difficulty concentrating, remembering, or making decisions No 04/05/2015 10:17 AM EDT Mariella Combs Tali No [facility] Clinical Notes 06-01-2015 to 04-28-2025 Patient InstructionsWendy Euceda APRN.[facility] - 04/28/2025 3:50 PM EDTPatient Tiffanie Denton MD - 01/05/2025 9:53 AM Tiffanie Pugh MD - 12/10/2024 2:02 PM EDT Note Date & Type Note Facility 04-28-2025 Instructions Wendy Euceda APRN.SHIPPING ASSOCIATE - 04/28/2025 3:51 PM EDT 1. Sprain of right knee, unspecified ligament, initial encounter (S83.91XA) - Acute right knee sprain after increased activity and sudden movement; exam reveals localized pain, but knee is stable with no calf pain. - Applied BIJU wrap for stabilization and compression. - Advised rest, elevation, and application of ice to the affected area. - Recommended use of ibuprofen or Tylenol for pain management. - Diagnosis: sprained right knee. - The BIUJ wrap applied will help stabilize your knee and thigh and provide gentle compression. - Rest your knee for the next couple of days; avoid activities that bend or stress it. - Elevate your leg when you re sitting or lying down to help reduce swelling. - Apply ice or a cold pack (such as a freezer gel pad) to your knee to ease pain and swelling. - Take Tylenol or ibuprofen from home as needed for pain relief. documented in this encounter [facility] 04-28-2025 Note HNO ID: [id number] Author: WENDY EUCEDA APRN.SHIPPING ASSOCIATE Service: ? Author Type: Nurse Practitioner Type: Progress Notes Filed: 04/28/2025 15:52 Note Text: [facility] Subjective Lianne Sparks is a 39 year old female. Patient presents with: Thigh Pain: right thigh pain x 1 day HPI The patient is a 39-year-old female presenting for evaluation of a popping sensation in the thigh. Thigh Popping: - Onset yesterday while bending down in her room. - Preceded by a day of yard work involving repetitive bending. - Describes a poppingsensation in the thigh above the knee and some slight knee pain. - [place]wood unable to bend the leg yesterday; propped it up on a pillow and took pain medication. - Woke up today with continued pain in right thigh but improved from yesterday. - Denies any falls or trauma. Review of Systems Constitutional: Negative for chills and fever. Musculoskeletal: Positive for myalgias. Negative for back pain, gait problem and joint swelling. Skin: Negative for color change and rash. Musculoskeletal: (+) right thigh popping sensation, (+) right knee pain, (-) calf pain Objective BP 122/74 Pulse 76 Temp 36.7 ?C (98 ?F) Resp 16 Wt 83.3 kg (183 lb 10.3 oz) LMP 12/05/2015 SpO2 98% BMI 33.59 kg/m? PAST MEDICAL HISTORY Diagnosis Date - Depression - Depression 05/24/2022 PAST SURGICAL HISTORY Procedure Laterality Date - MIRENA 09/20/2015 ALLERGIES Patient has no known allergies. MEDICATIONS - escitalopram oxalate (LEXAPRO) 10 mg tablet Take 1 tablet by mouth once daily. - hydrOXYzine pamoate (VISTARIL) 50 mg capsule Take 1 capsule by mouth three times a day as needed for anxiety. - cholecalciferol, vitamin D3, (VITAMIN D3) 100 mcg (4,000 unit) cap Take 1 capsule by mouth twice daily. - levonorgestrel (MIRENA) 20 mcg/24 hr (5 years) IUD 1 Each by INTRAUTERINE route one time only. - levonorgestrel (MIRENA) 21 mcg/24hr (up to 8 yrs) 52 mg IUD 1 each by INTRAUTERINE route as directed. FAMILY HISTORY Problem Relation Age of Onset - No Known Problems Mother - No Known Problems Father - other (marfans) Half-sister - Hypertension Maternal Grandmother - Heart Maternal Grandmother - No Known Problems Maternal Grandfather - No Known Problems Paternal Grandmother - No Known Problems Paternal Grandfather SOCIAL HISTORY[1] Physical Exam Vitals and nursing note reviewed. Constitutional: General: She is not in acute distress. Appearance: Normal appearance. She is not ill-appearing. Neurological: Mental Status: She is alert. General: No acute distress. MSK/Ext: Tenderness reported along right distal thigh, knee stable, pain elicited with knee flexion, no calf pain. No knee, thigh or calf swelling. Skin warm and dry. No erythema or rash. { 1. Sprain of right knee, unspecified ligament, initial encounter (S83.91XA) - Acute right knee sprain after increased activity and sudden movement; exam reveals localized pain, but knee is stable with no calf pain. - Applied BIJU wrap for stabilization and compression. - Advised rest, elevation, and application of ice to the affected area. - Recommended use of ibuprofen or Tylenol for pain management. - Follow-up with your PCP in 3-5 days if symptoms have not improved or sooner if symptoms worsen - Discussed red flags and need for immediate medical evaluation if any occur. - Discussed supportive care treatment with fluids, rest and analgesia. - Discussed expected course of illness Wendy Euceda APRN.SHIPPING ASSOCIATE and Recording using [employer] software for draft documentation of the visit was discussed with the patient/authorized sales utility representative; all questions welcomed and answered. Patient/authorized sales utility representative agreed to proceed Disposition The patient was discharged. OTC Medications were advised: Tylenol/ibuprofen Procedures [1] Social History Tobacco Use - Smoking status: Never - Smokeless tobacco: Never Vaping Use - Vaping status: Former Substance Use Topics - Alcohol use: No - Drug use: Not Currently Types: Marijuana [facility] 04-28-2025 History of Presen t illness Narrative [facility] Subjective Lianne Sparks is a 39 year old female. Patient presents with: Thigh Pain: right thigh pain x 1 day HPI The patient is a 39-year-old female presenting for evaluation of a popping sensation in the thigh. Thigh Popping: - Onset yesterday while bending down in her room. - Preceded by a day of yard work involving repetitive bending. - Describes a poppingsensation in the thigh above the knee and some slight knee pain. - Sherwood unable to bend the leg yesterday; propped it up on a pillow and took pain medication. - Woke up today with continued pain in right thigh but improved from yesterday. - Denies any falls or trauma. Review of Systems Constitutional: Negative for chills and fever. Musculoskeletal: Positive for myalgias. Negative for back pain, gait problem and joint swelling. Skin: Negative for color change and rash. Musculoskeletal: (+) right thigh popping sensation, (+) right knee pain, (-) calf pain Objective BP 122/74 Pulse 76 Temp 36.7 C (98 F) Resp 16 Wt 83.3 kg (183 lb 10.3 oz) LMP 12/05/2015 SpO2 98% BMI 33.59 kg/m PAST MEDICAL HISTORY Diagnosis Date Depression Depression 05/24/2022 PAST SURGICAL HISTORY Procedure Laterality Date MIRENA 09/20/2015 ALLERGIES Patient has no known allergies. MEDICATIONS escitalopram oxalate (LEXAPRO) 10 mg tablet Take 1 tablet by mouth once daily. hydrOXYzine pamoate (VISTARIL) 50 mg capsule Take 1 capsule by mouth three times a day as needed for anxiety. cholecalciferol, vitamin D3, (VITAMIN D3) 100 mcg (4,000 unit) cap Take 1 capsule by mouth twice daily. levonorgestrel (MIRENA) 20 mcg/24 hr (5 years) IUD 1 Each by INTRAUTERINE route one time only. levonorgestrel (MIRENA) 21 mcg/24hr (up to 8 yrs) 52 mg IUD 1 each by INTRAUTERINE route as directed. FAMILY HISTORY Problem Relation Age of Onset No Known Problems Mother No Known Problems Father other (marfans) Half-sister Hypertension Maternal Grandmother Heart Maternal Grandmother No Known Problems Maternal Grandfather No Known Problems Paternal Grandmother No Known Problems Paternal Grandfather SOCIAL HISTORY[1] Physical Exam Vitals and nursing note reviewed. Constitutional: General: She is not in acute distress. Appearance: Normal appearance. She is not ill-appearing. Neurological: Mental Status: She is alert. General: No acute distress. MSK/Ext: Tenderness reported along right distal thigh, knee stable, pain elicited with knee flexion, no calf pain. No knee, thigh or calf swelling. Skin warm and dry. No erythema or rash. { 1. Sprain of right knee, unspecified ligament, initial encounter (S83.91XA) - Acute right knee sprain after increased activity and sudden movement; exam reveals localized pain, but knee is stable with no calf pain. - Applied BIJU wrap for stabilization and compression. - Advised rest, elevation, and application of ice to the affected area. - Recommended use of ibuprofen or Tylenol for pain management. - Follow-up with your PCP in 3-5 days if symptoms have not improved or sooner if symptoms worsen - Discussed red flags and need for immediate medical evaluation if any occur. - Discussed supportive care treatment with fluids, rest and analgesia. - Discussed expected course of illness Wendy Euceda APRN.SHIPPING ASSOCIATE and Recording using [employer] software for draft documentation of the visit was discussed with the patient/authorized sales utility representative; all questions welcomed and answered. Patient/authorized sales utility representative agreed to proceed Disposition The patient was discharged. OTC Medications were advised: Tylenol/ibuprofen Procedures [1] Social History Tobacco Use Smoking status: Never Smokeless tobacco: Never Vaping Use Vaping status: Former Substance Use Topics Alcohol use: No Drug use: Not Currently Types: Marijuana documented in this encounter [facility] 01-05-2025 Instructions Jessica Harvey MA - 01/05/2025 9:55 AM EDT POST IUD INSTRUCTIONS You may have irregular bleeding during the first 3 months of use. You may have mild-severe cramping for the next 48 hours. You may use over the counter medication (Motrin, Tylenol) as needed. Your IUD must be removed or replaced based on the following table: IUD Type Removed or replaced within: Valerie 3 years Kyleena 5 years Mirena 8 years Liletta 8 years Paragard 10 years Call the office for signs/symptoms of infection such as severe cramping, fever, or unusual bleeding. Check for string placement as instructed by your doctor. If you have any additional questions, please contact the office. documented in this encounter [facility] 01-05-2025 Note HNO ID: [id number] Author: TIFFANIE PRYOR MD Service: ? Author Type: Physician Type: Progress Notes Filed: 01/05/2025 10:24 Note Text: Lianne presents for removal of IUD due to expiration of IUD. UNIVERSAL PROTOCOL / SAFETY CHECKLIST Procedure to be Performed: IUD removal Sign In: A Moment of CARE was completed. Appropriate PPE (Personal Protective Equipment) worn by all providers involved with the procedure. Special equipment not required. Patient/Surrogate Stated/Verified: Patient name, Date of , Relevant allergies, and The intended procedure Time Out: Relevant labs, photos, and/or imaging studies have been reviewed. Intended patient and procedure match the source document(s) (e.g. consent, HANDP, associated studies [imaging, pathology]) match the intended patient and procedure. Consent obtained and matches the intended procedure. Yes. Correct side/site is not applicable. Medications required for this procedure are not applicable. Fire risk assessed and is not applicable. Implants: Correct implant(s) confirmed including size and side. Expiration date(s) reviewed. Sign Out: Specimens not collected. All instruments, equipment, possible retained foreign bodies are accounted for. Yes. The post-procedure plan of care has been communicated to the patient or surrogate. PROCEDURE: Speculum placed in vagina, IUD string visualized and grasped with ring forceps. ASSESSMENT/PLAN: IUD removed without difficulty, intact, and patient tolerated procedure well. Contraception plans: Mirena IUD Tiffanie Pryor MD Lianne presents today for IUD insertion for contraception. Patient's last menstrual period was 12/05/2015. GC/chlamydia: Not done: no risk factors and/or patient declines screening test: negative Side effects including irregular bleeding were discussed with the patient. The patient understands that it should be removed in 8 years or sooner if the patient desires a . IUD source: office provided IUD lot #: [id number] Exp date: 01/31/2027 The cervix was prepped with betadine. The uterus sounded to 3 cm and the uterus is Midposition.. Using sterile technique, the Mirena IUD was inserted without difficulty and the string was cut to 3 cm from the external os of the cervix. Patient tolerated procedure well. PLAN: Patient was advised to observe for signs and symptoms of infection including but not limited to fever, malodorous vaginal discharge and/or pain. The patient was told to check the string monthly for accurate placement. Bleeding expectations were reviewed. Follow up for next annual exam or sooner as needed. Tiffanie Pryor MD [facility] 01-05-2025 History of Presen t illness Narrative Lianne presents for removal of IUD due to expiration of IUD. UNIVERSAL PROTOCOL / SAFETY CHECKLIST Procedure to be Performed: IUD removal Sign In: A Moment of CARE was completed. Appropriate PPE (Personal Protective Equipment) worn by all providers involved with the procedure. Special equipment not required. Patient/Surrogate Stated/Verified: Patient name, Date of , Relevant allergies, and The intended procedure Time Out: Relevant labs, photos, and/or imaging studies have been reviewed. Intended patient and procedure match the source document(s) (e.g. consent, H&P, associated studies [imaging, pathology]) match the intended patient and procedure. Consent obtained and matches the intended procedure. Yes. Correct side/site is not applicable. Medications required for this procedure are not applicable. Fire risk assessed and is not applicable. Implants: Correct implant(s) confirmed including size and side. Expiration date(s) reviewed. Sign Out: Specimens not collected. All instruments, equipment, possible retained foreign bodies are accounted for. Yes. The post-procedure plan of care has been communicated to the patient or surrogate. PROCEDURE: Speculum placed in vagina, IUD string visualized and grasped with ring forceps. ASSESSMENT/PLAN: IUD removed without difficulty, intact, and patient tolerated procedure well. Contraception plans: Mirena IUD Tiffanie Pryor MD Lianne presents today for IUD insertion for contraception. Patient's last menstrual period was 12/05/2015. GC/chlamydia: Not done: no risk factors and/or patient declines screening test: negative Side effects including irregular bleeding were discussed with the patient. The patient understands that it should be removed in 8 years or sooner if the patient desires a . IUD source: office provided IUD lot #: [id number] Exp date: 01/31/2027 The cervix was prepped with betadine. The uterus sounded to 3 cm and the uterus is Midposition.. Using sterile technique, the Mirena IUD was inserted without difficulty and the string was cut to 3 cm from the external os of the cervix. Patient tolerated procedure well. PLAN: Patient was advised to observe for signs and symptoms of infection including but not limited to fever, malodorous vaginal discharge and/or pain. The patient was told to check the string monthly for accurate placement. Bleeding expectations were reviewed. Follow up for next annual exam or sooner as needed. Tiffanie Pryor MD documented in this encounter [facility] 12-10-2024 Note HNO ID: [id number] Author: TIFFANIE PRYOR MD Service: ? Author Type: Physician Type: Progress Notes Filed: 12/10/2024 15:00 Note Text: Spinneret Cleaner offered: Patient declines. Lianne is a 39 year old who presents for an annual gynecologic exam without complaints. IUD would like a new one. Not currently sexually active. Partner oversees in the Age at Menarche: 18 Still get period: No LMP: n/a Menses: no menses - Mirena IUD Menstrual flow: N/A Bleeding amount bothersome: N/A Bleeding between periods: N/A Period symptoms: None Sexually active: No Time with current partner: N/A Contraception: IUD Contraception frequency: Always HPV vaccine: No HPV:negative Last pap smear: 05/15/2022, normal History of abnormal pap: Yes Colposcopy: No. Leep: No. Cone biopsy: No. Bothersome pelvic pain: No Last mammogram: unsure OB History Gravida2 Para2 Term0 Preterm2 AB0 Living2 SAB0 IAB0 Ectopic0 Multiple0 Live Births2 FAMILY HISTORY Problem Relation Age of Onset No Known Problems Mother No Known Problems Father other (marfans) Half-sister Hypertension Maternal Grandmother Heart Maternal Grandmother No Known Problems Maternal Grandfather No Known Problems Paternal Grandmother No Known Problems Paternal Grandfather SOCIAL HISTORY Social History Tobacco Use Smoking status: Never Smokeless tobacco: Never Vaping Use Vaping status: Former Substance Use Topics Alcohol use: No Drug use: Not Currently Types: Marijuana REVIEW OF SYSTEMS Abdomen: No abdominal pain, nausea, vomiting, diarrhea, or constipation. No bloating, early satiety, indigestion, or increased flatulence. Bladder: No dysuria, gross hematuria, urinary frequency, urinary urgency, or incontinence. Breast: No breast lumps, nipple d/c, overlying skin changes, redness or skin retraction. Allergies and current medication updated:Yes SENSITIVE EXAM: The sensitive examination was discussed with the Patient or Patient's Authorized Arbitrator. As applicable, any other physician, advance practice provider, medical student, or other health professional student that will be observing or involved in the sensitive examination for educational or training purposes was discussed with the Patient or Authorized Arbitrator. The Patient or Authorized Arbitrator has agreed to proceed with the sensitive examination. (Sensitive examination includes inspection and/or palpation of the breasts, pelvis, prostate and anorectal regions). EXAM: BP 120/80 Ht 5' 2 (1.58m) Wt 182 lb 3.2 oz (82.6kg) LMP 12/05/2015 BMI 33.32 kg/(m2). GENERAL: pleasant, female in no apparent distress HEENT: Normocephalic, atraumatic, mucus membranes moist, and no lesions NECK: Supple, full range of motion, no adenopathy, and thyroid normal DERMATOLOGY: Normal, without lesions, non-icteric, and non-hirsute BREAST: soft, non-tender, symmetric, no dominant mass, normal nipple-areolar complex, no lymphadenopathy, and no nipple discharge CHEST: Normal inspiratory effort ABDOMEN: soft, non-tender, and no masses PELVIC: external genitalia normal, normal Bartholin's glands, urethra, [place]'s glands, no vulvar lesions, no cervical lesions, good vaginal support, physiologic discharge present, normal appearing perineal body and perianal region, IUD strings visible BIMANUAL: uterus normal size, shape and consistency, no adnexal masses, and non-tender RECTOVAGINAL: deferred. NEURO: alert and oriented x3,exam grossly non-focal EXTREMITIES: normal ASSESSMENT/PLAN: 1) Health maintenance: Pap/HPV up to date. 2) Contraception: IUD. Contraceptive options reviewed and information provided. 3) STD screening: Declined STD check. 4) Follow up one year or sooner as needed Tiffanie Pryor MD [facility] 12-10-2024 History of Presen t illness Narrative Spinneret Cleaner offered: Patient declines. Lianne is a 39 year old who presents for an annual gynecologic exam without complaints. IUD would like a new one. Not currently sexually active. Partner oversees in the Age at Menarche: 18 Still get period: No LMP: n/a Menses: no menses - Mirena IUD Menstrual flow: N/A Bleeding amount bothersome: N/A Bleeding between periods: N/A Period symptoms: None Sexually active: No Time with current partner: N/A Contraception: IUD Contraception frequency: Always HPV vaccine: No HPV:negative Last pap smear: 05/15/2022, normal History of abnormal pap: Yes Colposcopy: No. Leep: No. Cone biopsy: No. Bothersome pelvic pain: No Last mammogram: unsure OB History Gravida2 Para2 Term0 Preterm2 AB0 Living2 SAB0 IAB0 Ectopic0 Multiple0 Live Births2 FAMILY HISTORY Problem Relation Age of Onset No Known Problems Mother No Known Problems Father other (marfans) Half-sister Hypertension Maternal Grandmother Heart Maternal Grandmother No Known Problems Maternal Grandfather No Known Problems Paternal Grandmother No Known Problems Paternal Grandfather SOCIAL HISTORY Social History Tobacco Use Smoking status: Never Smokeless tobacco: Never Vaping Use Vaping status: Former Substance Use Topics Alcohol use: No Drug use: Not Currently Types: Marijuana REVIEW OF SYSTEMS Abdomen: No abdominal pain, nausea, vomiting, diarrhea, or constipation. No bloating, early satiety, indigestion, or increased flatulence. Bladder: No dysuria, gross hematuria, urinary frequency, urinary urgency, or incontinence. Breast: No breast lumps, nipple d/c, overlying skin changes, redness or skin retraction. Allergies and current medication updated:Yes SENSITIVE EXAM: The sensitive examination was discussed with the Patient or Patient's Authorized Arbitrator. As applicable, any other physician, advance practice provider, medical student, or other health professional student that will be observing or involved in the sensitive examination for educational or training purposes was discussed with the Patient or Authorized Arbitrator. The Patient or Authorized Arbitrator has agreed to proceed with the sensitive examination. (Sensitive examination includes inspection and/or palpation of the breasts, pelvis, prostate and anorectal regions). EXAM: BP 120/80 Ht 5' 2 (1.58m) Wt 182 lb 3.2 oz (82.6kg) LMP 12/05/2015 BMI 33.32 kg/(m^2). GENERAL: pleasant, female in no apparent distress HEENT: Normocephalic, atraumatic, mucus membranes moist, and no lesions NECK: Supple, full range of motion, no adenopathy, and thyroid normal DERMATOLOGY: Normal, without lesions, non-icteric, and non-hirsute BREAST: soft, non-tender, symmetric, no dominant mass, normal nipple-areolar complex, no lymphadenopathy, and no nipple discharge CHEST: Normal inspiratory effort ABDOMEN: soft, non-tender, and no masses PELVIC: external genitalia normal, normal Bartholin's glands, urethra, [place]'s glands, no vulvar lesions, no cervical lesions, good vaginal support, physiologic discharge present, normal appearing perineal body and perianal region, IUD strings visible BIMANUAL: uterus normal size, shape and consistency, no adnexal masses, and non-tender RECTOVAGINAL: deferred. NEURO: alert and oriented x3,exam grossly non-focal EXTREMITIES: normal ASSESSMENT/PLAN: 1) Health maintenance: Pap/HPV up to date. 2) Contraception: IUD. Contraceptive options reviewed and information provided. 3) STD screening: Declined STD check. 4) Follow up one year or sooner as needed Tiffanie Pryor MD documented in this encounter [facility] 11-25-2024 Telephone encounter Note Pt seen in office today and given consult to FILM WRITER. Abhi Rivera MA [facility] 11-25-2024 Miscellaneous Notes Pt seen in office today and given consult to FILM WRITER. Abhi Rivera MA Called and LM on VM for pt to return call to office regarding upcoming appt with PCP tomorrow at 10:00 am. PCP does not do TORCH SHEARER care or vaginal exams or Mirena changes. Pt needs to f/u with [facility] for her routine care or we can refer her. However, she is due for her routine Wellness visit, which we can complete. since she's not been seen since 05/2023. Abhi Rivera MA documented in this encounter [facility] 11-25-2024 History of Presen t illness Narrative Chief Complaint Patient presents with: Wellness HPI Lianne Sparks is a 39 year old female who presents here today for an annual visit. Pt here today for a routine follow up. Pt last seen in office on 05/30/23. Has not been seen by this office since 2009. GI/Uro - Denies any stomach, bowel or urinary issues. Cardio - Denies any chest pain, sob, or dizziness. Diet/Exercise - Eats a well balanced diet. Exercises by dancing, walking, and using infinity hoop. Depression/Anxiety - Overall depression and anxiety are stable with use of Lexapro 10 mg once daily and Hydroxyzine prn. Feels maybe one of the medications may make her sleepy, but is stable with taking. Admits she's been out of her medication since the beginning of the year. Thought she was doing okay without it, but realized she probably should take it and needed to follow up sooner. No counseling at this time. Discussed with Shelly Medellin CNP at previous Wellness visit in 2022 that her Mirena needs replaced. Was advised to f/u with [facility]. Last Seen by Yasmine Bobby in 2021. Pt unable to recall who she last seen and states she needs this replaced. HM - Declines Covid/Flu vaccine. Declines Hep C screening. Past medical history, appointments, medications, allergies reviewed. Previous Medical History PAST MEDICAL HISTORY Diagnosis Date Depression Depression 05/24/2022 Previous Surgical History PAST SURGICAL HISTORY Procedure Laterality Date MIRENA 09/20/2015 NONE Family History FAMILY HISTORY Problem Relation Age of Onset Hypertension Maternal Grandmother Heart Maternal Grandmother Patient Allergies ALLERGIES No Known Allergies Current Medications Current Outpatient Medications on File Prior to Visit Medication Sig escitalopram oxalate (LEXAPRO) 10 mg tablet Take 1 tablet by mouth once daily. cholecalciferol, vitamin D3, (VITAMIN D3) 100 mcg (4,000 unit) cap Take 1 capsule by mouth twice daily. levonorgestrel (MIRENA) 20 mcg/24 hr (5 years) IUD 1 Each by INTRAUTERINE route one time only. No current facility-administered medications on file prior to visit. Social History Social History Tobacco Use Smoking status: Never Smokeless tobacco: Never Vaping Use Vaping status: Former Substance Use Topics Alcohol use: No Drug use: Not Currently Types: Marijuana EXAM: BP 104/70 (BP Site: Left Arm, BP Position: Sitting, BP Cuff Size: Regular Adult) Pulse 76 Resp 18 Ht 157.5 cm (5' 2) Wt 81.3 kg (179 lb 3.7 oz) LMP 12/05/2015 BMI 32.78 kg/m General Appearance: Well appearing, alert, in no acute distress, well-hydrated, well nourished.. Lungs: Lungs clear to auscultation. No wheezing, rhonchi, rales.. Heart: RRR without murmur, gallop, or rubs. No ectopy. Health Maintenance List Anxiety Screening Never done Hepatitis C Screening Never done Influenza Vaccine(1) due on 05/04/2024 Covid-19 Vaccine( season) Never done DTaP,Tdap,Td Vaccine(9 - Td or Tdap) due on 06/23/2025 Cervical Cancer Screening due on 05/15/2027 Hepatitis B Vaccine Completed HIV Screening Completed Data reviewed None ASSESSMENT/PLAN: 1. Wellness examination - ICD9: V70.0, ICD10: Z00.00 (primary diagnosis) - Counseled on healthy diet and regular exercise 2. Current moderate episode of major depressive disorder, unspecified whether recurrent (HCC) - ICD9: 296.22, ICD10: F32.1 Continue current medications. - ESCITALOPRAM 10 MG TABLET - HYDROXYZINE PAMOATE 50 MG CAPSULE 3. Well woman exam with routine gynecological exam - ICD9: V72.31, ICD10: Z01.419 - CONSULT TO FILM WRITER 4. Encounter for screening examination for other mental health and behavioral disorders - ICD9: V79.8, ICD10: Z13.39 - ANXIETY SCREENING Follow up in 6 months Kena Delaney MD documented in this encounter [facility] 11-25-2024 Note HNO ID: [id number] Author: KENA DELANEY MD Service: ? Author Type: Physician Type: Progress Notes Filed: 11/25/2024 10:45 Note Text: Chief Complaint Patient presents with: Wellness HPI Lianne Sparks is a 39 year old female who presents here today for an annual visit. Pt here today for a routine follow up. Pt last seen in office on 05/30/23. Has not been seen by this office since 2009. GI/Uro - Denies any stomach, bowel or urinary issues. Cardio - Denies any chest pain, sob, or dizziness. Diet/Exercise - Eats a well balanced diet. Exercises by dancing, walking, and using infinity hoop. Depression/Anxiety - Overall depression and anxiety are stable with use of Lexapro 10 mg once daily and Hydroxyzine prn. Feels maybe one of the medications may make her sleepy, but is stable with taking. Admits she's been out of her medication since the beginning of the year. Thought she was doing okay without it, but realized she probably should take it and needed to follow up sooner. No counseling at this time. Discussed with Shelly Medellin CNP at previous Wellness visit in 2022 that her Mirena needs replaced. Was advised to f/u with [facility]. Last Seen by Yasmine Bobby in 2021. Pt unable to recall who she last seen and states she needs this replaced. HM - Declines Covid/Flu vaccine. Declines Hep C screening. Past medical history, appointments, medications, allergies reviewed. Previous Medical History PAST MEDICAL HISTORY Diagnosis Date Depression Depression 05/24/2022 Previous Surgical History PAST SURGICAL HISTORY Procedure Laterality Date MIRENA 09/20/2015 NONE Family History FAMILY HISTORY Problem Relation Age of Onset Hypertension Maternal Grandmother Heart Maternal Grandmother Patient Allergies ALLERGIES No Known Allergies Current Medications Current Outpatient Medications on File Prior to Visit Medication Sig escitalopram oxalate (LEXAPRO) 10 mg tablet Take 1 tablet by mouth once daily. cholecalciferol, vitamin D3, (VITAMIN D3) 100 mcg (4,000 unit) cap Take 1 capsule by mouth twice daily. levonorgestrel (MIRENA) 20 mcg/24 hr (5 years) IUD 1 Each by INTRAUTERINE route one time only. No current facility-administered medications on file prior to visit. Social History Social History Tobacco Use Smoking status: Never Smokeless tobacco: Never Vaping Use Vaping status: Former Substance Use Topics Alcohol use: No Drug use: Not Currently Types: Marijuana EXAM: BP 104/70 (BP Site: Left Arm, BP Position: Sitting, BP Cuff Size: Regular Adult) Pulse 76 Resp 18 Ht 157.5 cm (5' 2) Wt 81.3 kg (179 lb 3.7 oz) LMP 12/05/2015 BMI 32.78 kg/m? General Appearance: Well appearing, alert, in no acute distress, well-hydrated, well nourished.. Lungs: Lungs clear to auscultation. No wheezing, rhonchi, rales.. Heart: RRR without murmur, gallop, or rubs. No ectopy. Health Maintenance List Anxiety Screening Never done Hepatitis C Screening Never done Influenza Vaccine(1) due on 05/04/2024 Covid-19 Vaccine(1 - 2023- season) Never done DTaP,Tdap,Td Vaccine(9 - Td or Tdap) due on 06/23/2025 Cervical Cancer Screening due on 05/15/2027 Hepatitis B Vaccine Completed HIV Screening Completed Data reviewed None ASSESSMENT/PLAN: 1. Wellness examination - ICD9: V70.0, ICD10: Z00.00 (primary diagnosis) - Counseled on healthy diet and regular exercise 2. Current moderate episode of major depressive disorder, unspecified whether recurrent (HCC) - ICD9: 296.22, ICD10: F32.1 Continue current medications. - ESCITALOPRAM 10 MG TABLET - HYDROXYZINE PAMOATE 50 MG CAPSULE 3. Well woman exam with routine gynecological exam - ICD9: V72.31, ICD10: Z01.419 - CONSULT TO FILM WRITER 4. Encounter for screening examination for other mental health and behavioral disorders - ICD9: V79.8, ICD10: Z13.39 - ANXIETY SCREENING Follow up in 6 months Kena Delaney MD [facility] 11-24-2024 Telephone encounter Note Called and LM on VM for pt to return call to office regarding upcoming appt with PCP tomorrow at 10:00 am. PCP does not do [facility] care or vaginal exams or Mirena changes. Pt needs to f/u with [facility] for her routine care or we can refer her. However, she is due for her routine Wellness visit, which we can complete. since she's not been seen since 05/2023. Abhi Rivera MA [facility] 03-10-2024 History of Presen t illness Narrative This note was created using [employer]. Subjective Lianne Sparks is a 38 year old female. Lianne Sparks is a 38 year old female with no PMH presenting today for complaints of left eye pain and swelling since this morning. Says that she woke up and noticed her top eyelid on her left eye was painful, red, and swollen. She had trouble opening up her eyelid. Says there was no discharge from the eye except for in the inner corner. Her eyeball is not itchy or red. Denies any eye trauma. Denies visual changes. Does not wear contacts or glasses. She says she iced her eye for a half hour and noticed the swelling go down. Pertinent negatives: -eye discharge -eyeball pain -eye itchiness -eye redness -injury -shortness of breath -chest pain -fatigue -n/v/d -ear complaints -sore throat -chills -diaphoresis -fever Pertinent positives: -skin erythema -swelling The history is provided by the patient. Eye Problem This is a new problem. The current episode started today. The problem has been gradually improving. Pertinent negatives include no abdominal pain, anorexia, arthralgias, change in bowel habit, chest pain, chills, congestion, coughing, diaphoresis, fatigue, fever, headaches, joint swelling, myalgias, nausea, neck pain, numbness, rash, sore throat, swollen glands, urinary symptoms, vertigo, visual change, vomiting or weakness. Nothing aggravates the symptoms. She has tried ice for the symptoms. The treatment provided moderate relief. PAST MEDICAL HISTORY Diagnosis Date Depression Depression 05/24/2022 PAST SURGICAL HISTORY Procedure Laterality Date MIRENA 09/20/2015 NONE ALLERGIES Patient has no known allergies. MEDICATIONS escitalopram oxalate (LEXAPRO) 10 mg tablet Take 1 tablet by mouth once daily. levonorgestrel (MIRENA) 20 mcg/24 hr (5 years) IUD 1 Each by INTRAUTERINE route one time only. predniSONE (DELTASONE) 20 mg tablet Take 1 tablet by mouth once daily for 5 days. amoxicillin-clavulanate potassium (AUGMENTIN) 875-125 mg per tablet Take 1 tablet by mouth two times a day for 10 days. cholecalciferol, vitamin D3, (VITAMIN D3) 100 mcg (4,000 unit) cap Take 1 capsule by mouth twice daily. FAMILY HISTORY Problem Relation Age of Onset Hypertension Maternal Grandmother Heart Maternal Grandmother Social History Tobacco Use Smoking status: Never Smokeless tobacco: Never Vaping Use Vaping Use: Former Substance Use Topics Alcohol use: No Drug use: Not Currently Types: Marijuana Review of Systems Constitutional: Negative for chills, diaphoresis, fatigue and fever. HENT: Positive for facial swelling. Negative for congestion, ear discharge, ear pain, sinus pressure, sinus pain and sore throat. Eyes: Negative for pain, discharge, redness, itching and visual disturbance. Eyeball not painful, itchy, or red. Eyelid is swollen, painful, and red. Respiratory: Negative for cough, chest tightness, shortness of breath, wheezing and stridor. Cardiovascular: Negative for chest pain and palpitations. Gastrointestinal: Negative for abdominal pain, anorexia, change in bowel habit, constipation, diarrhea, nausea and vomiting. Musculoskeletal: Negative for arthralgias, joint swelling, myalgias and neck pain. Skin: Negative for rash. Neurological: Negative for vertigo, weakness, numbness and headaches. Objective BP 128/74 Pulse 75 Temp 37 C (98.6 F) (Tympanic) Resp 18 Wt 84.5 kg (186 lb 4.6 oz) LMP 12/05/2015 SpO2 97% BMI 35.63 kg/m Physical Exam Vitals and nursing note reviewed. Constitutional: General: She is not in acute distress. Appearance: Normal appearance. She is not toxic-appearing. HENT: Head: Normocephalic and atraumatic. Nose: Nose normal. No congestion or rhinorrhea. Mouth/Throat: Dentition: Abnormal dentition. Eyes: General: Vision grossly intact. No allergic shiner, visual field deficit or scleral icterus. Right eye: No foreign body, discharge or hordeolum. Left eye: No foreign body, discharge or hordeolum. Extraocular Movements: Extraocular movements intact. Right eye: Normal extraocular motion and no nystagmus. Left eye: Normal extraocular motion and no nystagmus. Conjunctiva/sclera: Conjunctivae normal. Right eye: Right conjunctiva is not injected. No chemosis, exudate or hemorrhage. Left eye: Left conjunctiva is not injected. No chemosis, exudate or hemorrhage. Pupils: Pupils are equal, round, and reactive to light. Pupils are equal. Right eye: Pupil is round, reactive and not sluggish. Left eye: Pupil is round, reactive and not sluggish. Funduscopic exam: Right eye: Red reflex present. Left eye: Red reflex present. Visual Thomas: Right eye visual thomas normal and left eye visual thomas normal. Comments: Left upper and lower eyelids abnormal. Swelling and erythema. No tenderness to palpation. No eye discharge or hemorrhage. EOMs intact. Pupils are equal, reactive, and accommodate. Red reflex present bilaterally. No vision loss or blurry vision. Cardiovascular: Rate and Rhythm: Normal rate and regular rhythm. Heart sounds: Normal heart sounds. No murmur heard. No friction rub. No gallop. Pulmonary: Effort: Pulmonary effort is normal. No respiratory distress. Breath sounds: Normal breath sounds. No stridor. No wheezing, rhonchi or rales. Chest: Chest wall: No tenderness. Musculoskeletal: Cervical back: Normal range of motion and neck supple. No rigidity or tenderness. Lymphadenopathy: Cervical: No cervical adenopathy. Skin: General: Skin is warm and dry. Findings: Erythema present. Comments: Left orbit erythematous and edematous. No tenderness to palpation. No lesion or wound. No drainage. No ecchymosis. No rash. Neurological: Mental Status: She is alert. Psychiatric: Mood and Affect: Mood normal. Behavior: Behavior normal. Thought Content: Thought content normal. Judgment: Judgment normal. Assessment and Plan ASSESSMENT/PLAN: 1. Cellulitis of skin - ICD9: 682.9, ICD10: L03.90 (primary diagnosis) Swelling and redness of left orbit x 1 day. No trauma or injury. No tenderness to palpation. Eye and pupil with no abnormalities. Pupils equal and reactive. Nonpitting edema of left orbit. - Begin treatment with Augmentin 875mg BID for 10 days. Rx prednisone once a day for 5 days for swelling. - AMOXICILLIN 875 MG-POTASSIUM CLAVULANATE 125 MG TABLET 2. Swelling - ICD9: 782.3, ICD10: R60.9 Swelling and redness of left orbit x 1 day. No trauma or injury. No tenderness to palpation. Eye and pupil with no abnormalities. Pupils equal and reactive. Nonpitting edema of left orbit. If symptoms seem to be getting worse not better patient will report to the ER. Tiffany Gaston Supervising provider was present and guided the care of the patient for the entire session on this date. All documentation was reviewed and agreed upon. Brooke Willson APRN.ISSAC documented in this encounter [facility] 02-25-2024 History of Presen t illness Narrative Patient presents with: Sore Throat: cough x 2 days HPI: Feeling sore throat for 2 days. Positive symptoms: Cough, Sore throat, throat felt tight today, watery eyes, hurts to eat Negative symptoms: Nasal Congestion, Rhinorrhea, Fever, Chills, Body Aches, OTC: salt water gargle Denies history of environmental allergies. MEDICATIONS: Current Outpatient Medications Medication Sig escitalopram oxalate (LEXAPRO) 10 mg tablet Take 1 tablet by mouth once daily. cholecalciferol, vitamin D3, (VITAMIN D3) 100 mcg (4,000 unit) cap Take 1 capsule by mouth twice daily. levonorgestrel (MIRENA) 20 mcg/24 hr (5 years) IUD 1 Each by INTRAUTERINE route one time only. predniSONE (DELTASONE) 10 mg tablet Take 4 tabs daily for 3 days, then 2 tabs daily for 3 days, then 1 tab daily for 3 days with food. (Patient not taking: Reported on 2023) No current facility-administered medications for this visit. ALLERGIES: ALLERGIES No Known Allergies VITALS: BP 106/64 Pulse 86 Temp 36.7 C (98 F) Resp 16 Wt 83.5 kg (184 lb 1.4 oz) LMP 12/05/2015 SpO2 97% BMI 35.21 kg/m PHYSICAL EXAM: GEN: Pleasant, in no acute distress. HEENT: PERRL, EOMI, conjunctiva clear Ears: canals clear. TMs without erythema, bulge, or effusion Sinuses: non-tender frontal sinus, non-tender maxillary sinuses Throat: moist mucous membranes, mild erythema, no exudate Neck: supple, no thyromegaly, no lymphadenopathy HEART: regular rate and rhythm, no murmurs LUNGS: clear to auscultation, no wheezes or crackles, no increased WOB ASSESSMENT/PLAN: 1. Sore throat - ICD9: 462, ICD10: J02.9 - STREP A MOLECULAR (POC) - negative - suspect viral URI - Discussed supportive care treatment with rest, gargles, and analgesia. Follow up with primary care next week if still having difficulty swallowing. Khris Johnson MD documented in this encounter [facility] 2023 History of Presen t illness Narrative This is a 38 year old female who presents today with: Patient presents with: Physical HISTORY OF PRESENT ILLNESS: Lianne Sparks is a 38 year old female. Patient presents with: Physical Wellness Exam Diet: Eating a well balanced diet. Exercise: Walking and dancing. Vision: Had exam, no difficulties. Dental: Had exam. Sleep: 7-8 hours per night. Mood: Taking Lexapro 10 mg daily and using hydroxyzine as needed. Symptoms well controlled. Denies any increased sadness, anxiety, or SI/HI. Red Face: Refers that she has noticed increased redness to cheeks bilaterally. No itching or tenderness. Has not applied any cream. Menses: Mirena in place, needs replaced. Pap: Last Pap May 2022, normal, negative HPV. Vaccines: Denies wanting at this time. PAST MEDICAL HISTORY: PAST MEDICAL HISTORY Diagnosis Date Depression Depression 05/24/2022 PAST SURGICAL HISTORY Procedure Laterality Date MIRENA 09/20/2015 NONE ALLERGIES Patient has no known allergies. MEDICATIONS Current Outpatient Medications Medication Sig predniSONE (DELTASONE) 10 mg tablet Take 4 tabs daily for 3 days, then 2 tabs daily for 3 days, then 1 tab daily for 3 days with food. hydrOXYzine pamoate (VISTARIL) 50 mg capsule Take 50 mg by mouth three times daily as needed. escitalopram oxalate (LEXAPRO) 10 mg tablet Take 1 tablet by mouth once daily. cholecalciferol, vitamin D3, (VITAMIN D3) 100 mcg (4,000 unit) cap Take 1 capsule by mouth twice daily. levonorgestrel (MIRENA) 20 mcg/24 hr (5 years) IUD 1 Each by INTRAUTERINE route one time only. No current facility-administered medications for this visit. FAMILY HISTORY Problem Relation Age of Onset Hypertension Maternal Grandmother Heart Maternal Grandmother Social History Tobacco Use Smoking status: Never Smokeless tobacco: Never Vaping Use Vaping Use: Former Substance Use Topics Alcohol use: No Drug use: Not Currently Types: Marijuana REVIEW OF SYSTEMS GENERAL: No weight loss, malaise or fevers/chills HEENT: Negative for frequent or significant headaches, No changes in hearing or vision. NECK: Negative for lumps, goiter, pain and significant neck swelling RESPIRATORY: Negative for cough, hemoptysis, wheezing, dyspnea or shortness of breath CARDIOVASCULAR: Negative for chest pain, leg swelling, orthopnea, or palpitations GI: No nausea, vomiting, or diarrhea/constipation. No hematochezia/melena. No heartburn or reflux symptoms. : No history of dysuria, frequency or incontinence MUSCULOSKELETAL: Negative for joint pain or swelling. SKIN: + Skin changes to face ENDOCRINE: Negative for cold or heat intolerance, polyuria, polydipsia and goiter NEURO: No history of headaches, syncope, paralysis, seizures or tremors MOOD: Negative for depression, anxiety, or suicidal ideation. EXAM: BP 110/70 Pulse 94 Resp 20 Ht 154 cm (5' 0.63) Wt 84.4 kg (186 lb) LMP 12/05/2015 SpO2 96% BMI 35.57 kg/m PHYSICAL EXAM: General Appearance: Well appearing, alert, in no acute distress, well-hydrated, well nourished. Skin: + Dry erythematic patches noted to cheeks bilaterally, non-tender. Consistent with eczema. Dry elevated light brown skin lesion noted to right cheek, consistent for actinic keratosis. Head: Normocephalic, no masses, lesions, tenderness or abnormalities. Eyes: Anicteric sclera. Pupils are equally round and reactive to light. Extraocular movements are intact. Ears: External ears normal, canals clear. TMs pearly randall. Neck: Supple, no adenopathy; thyroid symmetric, normal size, no bruits. Lungs: Lungs clear to auscultation. No wheezing, rhonchi, rales. Heart: RRR without murmur, gallop, or rubs. No ectopy. Abdomen: Normal abdominal exam, Abdomen soft, non-tender. Bowel sounds normal. No masses, organomegaly, Negative CVA tenderness. Extremities: No deformities, edema, skin discoloration, clubbing or cyanosis. Good capillary refill. Musculoskeletal: No joint swelling, deformity, or tenderness. Peripheral Pulses: Normal, Capillary refill <2secs, strong peripheral pulses, Pulses palpable. Neurologic: Gait normal. Reflexes normal and symmetric. Sensation grossly intact.. Mood: Does not, good eye contact, engaged. ASSESSMENT/PLAN: 1. Wellness examination - ICD9: V70.0, ICD10: Z00.00 (primary diagnosis) - Counseled on healthy diet and regular exercise - Calcium intake with supplements or by diet of 1000 mg/day for under 50, 5294-3559 mg/day for 50+ - Discussed need and benefit for weight loss. BMI 35.57 kg/(m^2) - Discussed safe sex practices and avoidance of STIs - Depression screening tool completed and reviewed with patient. Based on score and interview, patient is already diagnosed with depression and recommended continuing current plan of care. - Follow up for annual exam in one year - COMP METABOLIC PANEL 2. Current moderate episode of major depressive disorder, unspecified whether recurrent (HCC) - ICD9: 296.22, ICD10: F32.1 - Stable, refills provided. - ESCITALOPRAM 10 MG TABLET - HYDROXYZINE PAMOATE 50 MG CAPSULE 3. Skin lesion - ICD9: 709.9, ICD10: L98.9 - Recommend consult with dermatology - CONSULT TO DERMATOLOGY 4. Eczema, unspecified type - ICD9: 692.9, ICD10: L30.9 - discussed skin care of rash - follow up if symptoms persist or worsen. - Recommend using moisturizer daily. 5. Screening cholesterol level - ICD9: V77.91, ICD10: Z13.220 - LIPID PANEL BASIC Follow-up in 1 year or sooner pending test results. Discussed treatment plan and patient voices understanding. Patient's questions answered appropriately. Medications and potential side effects were discussed and patient voices understanding. Shelly Medellin APRN.CNP This note was partially generated using [employer] voice recognition system. Note was reviewed for accuracy. There may be minor misspellings or grammar miscues with [employer] voice recognition. documented in this encounter [facility] 2023 Instructions Shelly Medellin APRN.CNP - 2023 1:21 PM EDT Due to have Mirena replaced, schedule follow up with [facility]. Get fasting labs completed, no food 10-12 hours prior. May have black coffee and water. Continue to take all medication as prescribed. Recommend consult with Dermatology for skin lesion on face. May schedule with [facility] or see Miguel Angel Kramer in [place]. Recommend using a good moisturizer on face for dry skin. Follow up in 1 year or sooner pending test results. Health Promotion: - Eat healthy -- go to [employer] to get started - Have a yearly physical - Get at least 30 minutes of physical activity daily - Get at least 7 to 8 hours of sleep each night - Reach and maintain a healthy weight - Get help to quit or don't start smoking - Limit alcohol use to one drink or less - Do not use illegal drugs or misuse prescription drugs - Wear a helmet when riding a bike and wear protective gear for sports - Wear a seatbelt in cars and not text and drive - Wear sunscreen documented in this encounter [facility] 05-30-2022 Miscellaneous Notes Received a call from a lady stating that we have the wrong phone number for patient. The lady stated that she lives in [place] and has had this phone number for years. Letter mailed to patient to call office. Please verify phone number Left message for patient to call office. Tiffanie Cheung RN ----- Message from Yasmine Bobby APRN.CNM sent at 05/30/2022 10:00 AM EDT ----- PAP normal. Bacteria Actinomyces seen on PAP. Patient is not symptomatic and per recommendations does not need IUD removed at this time. She is scheduled for annual in September 2022- This was supposed to be for removal and replacement of IUD. Please call and confirm with patient. Yasmine Bobby APRN.CNM documented in this encounter [facility] 05-15-2022 History of Presen t illness Narrative Lianne is a 36 year old who presents for an annual gynecologic exam without complaints. Menses: no menses - Mirena IUD. 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 No bloating, early satiety, indigestion, or increased flatulence. Bladder: No dysuria, gross hematuria, urinary frequency, urinary urgency, or incontinence. Breast: No breast lumps, nipple d/c, overlying skin changes, redness or skin retraction. Allergies and current medication updated:Yes EXAM: BP 118/78 Ht 5' 1 (1.55m) Wt 174 lb (78.9kg) LMP 12/05/2015 BMI 32.89 kg/(m^2). GENERAL: pleasant, female in no apparent distress HEENT: Normocephalic, atraumatic, mucus membranes moist, and no lesions NECK: Supple and full range of motion DERMATOLOGY: Normal and without lesions BREAST: soft, non-tender, symmetric, no dominant mass, normal nipple-areolar complex, no lymphadenopathy, and no nipple discharge CHEST: Normal inspiratory effort ABDOMEN: soft, non-tender, and no masses PELVIC: external genitalia normal, normal Bartholin's glands, urethra, [place]'s glands, no vulvar lesions, no cervical lesions, good vaginal support, physiologic discharge present, normal appearing perineal body and perianal region, IUD strings visible BIMANUAL: uterus normal size, shape and consistency, no adnexal masses, non-tender, and no cervical motion tenderness RECTOVAGINAL: deferred. NEURO: alert and oriented x3,exam grossly non-focal EXTREMITIES: normal ASSESSMENT/PLAN: 1) Health maintenance: Pap done with HPV. Nutrition, exercise and routine health maintenance exams reviewed. 2) Contraception: IUD. Mirena due for removal 09/2022- patient desires replacement of Mirena 3) STD screening: Declined STD check. 4) Follow up one year or sooner as needed Yasmine Bobby APRN.CNM documented in this encounter [facility] 05-09-2022 History of Presen t illness Narrative Images from the original note were not included. CC: Patient presents with: Physical: Rash on left arm HPI Lianne Sparks is a 36 year old female who presents today for above. Exercise- rides bicycle about once a week, less than one mile Diet: Watches diet for salt (salty snacks, added salt, processed frozen/canned foods), sugary/sweet snacks, unhealthy fats: does not typically eat fruits/vegetables, limited sweets/snacks, only goes out to eat every other weekend-sit down restaurants, 2-3 cans of diet soda and a little bit of water a day REVIEW OF SYSTEMS General: no fevers, no chills, no night sweats, no change in appetite, no change in energy, and no significant changes in weight HEENT: no frequent or significant headaches, no changes in hearing, no visual changes Neck: no lumps, no pain , and no swelling Respiratory: no cough, no wheezing, no shortness of breath Cardiovascular: no chest pain, no chest pressure, no palpitations, no swelling, and no decrease in exercise tolerance GI: Negative for abdominal discomfort, blood in stools or black stools, change in bowel habit, heart burn, nausea, vomiting : Negative for dysuria, frequency, incontinence, hesitancy, and nocturia >1 [facility]: Negative for abnormal vaginal bleeding, abnormal vaginal discharge Musculoskeletal: Negative for joint pain or swelling, back pain or muscle pain Skin: rash on left arm, first noticed on Sunday. Had been helping with yard work the day before. Very itchy, no pain. Has not tried any OTC treatments. Psych: taking Lexapro for anxiety and depression. Feels that it is working well, needs refill. Negative for sleep disturbance, mood disorder and recent psychosocial stressors PAST MEDICAL HISTORY Diagnosis Date NONE PAST SURGICAL HISTORY Procedure Laterality Date NONE ALLERGIES Patient has no known allergies. MEDICATIONS hydrOXYzine pamoate (VISTARIL) 50 mg capsule Take 50 mg by mouth three times daily as needed. escitalopram oxalate (LEXAPRO) 10 mg tablet Take 1 tablet by mouth once daily. cholecalciferol, vitamin D3, (VITAMIN D3) 100 mcg (4,000 unit) cap Take 1 capsule by mouth twice daily. levonorgestrel (MIRENA) 20 mcg/24 hr (5 years) IUD 1 Each by INTRAUTERINE route one time only. FAMILY HISTORY Problem Relation Age of Onset Hypertension Maternal Grandmother Heart Maternal Grandmother Social History Tobacco Use Smoking status: Never Smokeless tobacco: Never Substance Use Topics Alcohol use: No Drug use: No PHYSICAL EXAM BP 104/72 Pulse 89 Resp 12 Ht 154.3 cm (5' 0.75) Wt 78.9 kg (174 lb) LMP 12/05/2015 SpO2 96% BMI 33.15 kg/m General Appearance: well appearing, in no acute distress, alert Pysch: mood and affect flat and restricted Skin: Skin color, texture, turgor normal for age; Eyes: conjunctiva pink and moist, no icterus, sclera white, non-injected Neck: Thyroid normal size and symmetric without palpable nodules, Neck supple, No adenopathy Lymph nodes: No supraclavicular lymphadenopathy Lungs: Lungs clear to auscultation. No wheezing, rhonchi, rales. Heart: RRR without murmur, gallop, or rubs. No ectopy Abdomen: Abdomen soft, non-tender. Bowel sounds normal. No masses, organomegaly Ext: no edema in LE bilaterally, good distal pulses Health maintenance reviewed with patient: HEPATITIS C SCREENING Never done HPV TESTING Never done PAP TESTING due on 08/13/2019 DEPRESSION SCREENING due on 02/14/2022 INFLUENZA(1) due on 03/02/2023 COVID-19 VACCINE(1) due on 05/09/2023 DTAP,TDAP,TD(9 - Td or Tdap) due on 06/23/2025 HEPATITIS B Completed HIV SCREENING Completed DATA REVIEWED: Most recent labs ASSESSMENT/PLAN: 1. Wellness examination - ICD9: V70.0, ICD10: Z00.00 (primary diagnosis) - Counseled on healthy diet and regular exercise - Calcium intake with supplements or by diet of 1000 mg/day for under 50, 5776-5911 mg/day for 50+ - Discussed need and benefit for weight loss. BMI 33.15 kg/(m^2) - Depression screening tool completed and reviewed with patient. Based on score and interview, patient is already diagnosed with depression and recommended continuing current plan of care. - Patient was counseled [id number] by myself (the billing provider) for the following immunizations and vaccine components, including side effects: COVID-19 and Influenza. Patient declined - Follow up for annual exam in one year - LIPID PANEL BASIC - COMP METABOLIC PANEL - CONSULT TO WOMEN'S HEALTH 2. Depression, unspecified depression type - ICD9: 311, ICD10: F32.A Stable on medication 3. Contact dermatitis, unspecified contact dermatitis type, unspecified trigger - ICD9: 692.9, ICD10: L25.9 - Topical steriod tx with Rx for steriod cream/ointment- see orders - discussed skin care of rash - follow up if symptoms persist or worsen. 4. Special screening examination for viral disease - ICD9: V73.99, ICD10: Z11.59 - HEP C AB IA W/CONF SCRN Prescription instructions reviewed with patient as applicable. Potential red flag symptoms discussed with the patient. Reviewed appropriate action plan to take if red flag symptoms occur. Patient agreeable to treatment plan. Tricia Castillo APRN.CNP documented in this encounter [facility] 06-01-2015 History of Past i llness Narrative Problem Noted Date Resolved Date Lost custody of children 06/01/2015 016 Overview: 06/23/15: no custody due to poor living conditions per patient 06/01/15 - patient reports that her daughter is living with her sister, she plans to get custody of her - KJ Previous delivery in second trimester, a ntepartum 05/03/2015 12/15/2015 Overview: May 03, 2015 progesterone injections scheduled. Katie Roque MD Supervision of other high risk , antepa rtum 04/05/2015 12/15/2015 Late care affecting 5 12/15/2015 Supervision of other normal 09/10/2014 12/18/2014 Rubella non-immune status, antepartum 08/18/2014 12/18/2014 Late care 08/13/2014 12/18/2014 Overview: 08/13/14 - US for dates scheduled for 08/17/14 - KJ Pain in joint, ankle and foot 05/16/2008 Dermatophytosis of nail 07/17/2005 08/13/20 14 documented as of this encounter (statuses as of 05/09/2022) [facility] History of Past illness Narrative* Problem Noted Date Resolved Date Lost custody of children 06/01/2015 016 Overview: 06/23/15: no custody due to poor living conditions per patient 06/01/15 - patient reports that her daughter is living with her sister, she plans to get custody of her - KJ Previous delivery in second trimester, a ntepartum 05/03/2015 12/15/2015 Overview: May 03, 2015 progesterone injections scheduled. Katie Roque MD Supervision of other high risk , antepa rtum 04/05/2015 12/15/2015 Late care affecting 5 12/15/2015 Supervision of other normal 09/10/2014 12/18/2014 Rubella non-immune status, antepartum 08/18/2014 12/18/2014 Late care 08/13/2014 12/18/2014 Overview: 08/13/14 - for dates scheduled for 08/17/14 - KJ Pain in joint, ankle and foot 05/16/2008 Dermatophytosis of nail 07/17/2005 08/13/20 14 documented as of this encounter (statuses as of 05/15/2022) [facility] History of Past illness Narrative* Problem Noted Date Resolved Date Lost custody of children 06/01/2015 016 Overview: 06/23/15: no custody due to poor living conditions per patient 06/01/15 - patient reports that her daughter is living with her sister, she plans to get custody of her - KJ Previous delivery in second trimester, a ntepartum 05/03/2015 12/15/2015 Overview: May 03, 2015 progesterone injections scheduled. Katie Roque MD Supervision of other high risk , antepa rtum 04/05/2015 12/15/2015 Late care affecting 5 12/15/2015 Supervision of other normal 09/10/2014 12/18/2014 Rubella non-immune status, antepartum 08/18/2014 12/18/2014 Late care 08/13/2014 12/18/2014 Overview: 08/13/14 - US for dates scheduled for 08/17/14 - KJ Pain in joint, ankle and foot 05/16/2008 Dermatophytosis of nail 07/17/2005 08/13/20 14 documented as of this encounter (statuses as of 06/01/2022) [facility] History of Past illness Narrative* Problem Noted Date Diagnosed Date Resolved Date Lost custody of children 06/01/2015 Overview: 06/23/15: no custody due to poor living conditions per patient 06/01/15 - patient reports that her daughter is living with her sister, she plans to get custody of her - KJ Previous delivery in second trimester, antepartum 05/03/2015 12/15/2015 Overview: May 03, 2015 progesterone injections scheduled. Katie Roque MD Supervision of other high ri sk , antepartum 04/05/2015 12/15/2015 Late care affecting 04/05/2015 12/15/2015 Supervision of other normal 09/10/2014 12/18/2014 Rubella non-immune status, antepartum 08/18/2014 12/18/2014 Late care 08/13/2014 5 Overview: 08/13/14 - US for dates scheduled for 08/17/14 - KJ Pain in joint, ankle and foot 05/16/2008 08/13/2014 Dermatophytosis of nail 07/17/200508/03 documented as of this encounter (statuses as of 2023) [facility] noteNo assessment information availableWOhioHealth [facility] Work Phone: Evaluation note* Diagnosis Wellness examination- Primary Depression, unspecified depression type Contact dermatitis, unspecified contact dermatitis type, unspecified trigger Special screening examination for viral disease Special screening examination for unspecified viral disease documented in this encounter [facility] note* Diagnosis Encounter for gynecological examination (general) (routine) without abnormal findings- Primary Screening for cervical cancer Screening for malignant neoplasm of the cervix Encounter for screening for human papillomavirus (HPV) Special screening examination for human papillomavirus (HPV) Encounter for IUD removal and reinsertion Encounter for removal and reinsertion of intrauterine contraceptive device documented in this encounter [facility] note* Diagnosis Wellness examination- Primary Current moderate episode of major depressive disorder, unspecified whether recurrent (HCC) Skin lesion Unspecified disorder of skin and subcutaneous tissue Eczema, unspecified type Screening cholesterol level Screening for lipoid disorders documented in this encounter [facility] note* Diagnosis Sore throat- Primary Acute pharyngitis [facility] Diagnosis Cellulitis of skin- Primary Cellulitis and abscess of unspecified site Swelling Edema documented in this encounter [facility] note* Diagnosis Wellness examination- Primary Current moderate episode of major depressive disorder, unspecified whether recurrent (HCC) Well woman exam with routine gynecological exam Routine gynecological examination Encounter for screening examination for other mental health and behavioral disorders documented in this encounter [facility] note* Diagnosis Encounter for gynecological examination (general) (routine) without abnormal findings- Primary Well woman exam with routine gynecological exam Routine gynecological examination Encounter for removal and reinsertion of intrauterine contraceptive device (IUD) [facility] [place] [facility]* Diagnosis Encounter for removal and reinsertion of intrauterine contraceptive device (IUD)- Primary Encounter for IUD insertion Encounter for insertion of intrauterine contraceptive device documented in this encounter [facility] note* Diagnosis Sprain of right knee, unspecified ligament, initial encounter- Primary documented in this encounter [facility] for referral (narrative)* Outpatient Procedure (Routine) - Pending Review Specialty Diagnoses / Procedures Referred By Yash garcia Referred To Contact [facility] Diagnoses Encounter for IUD removal and reinsertion Procedures INSERT INTRAUTERINE DEVICE INSERT INTRAUTERINE DEVICE Yasmine Bobby APRN.CNM [address] [place] [address] [facility] [address] [place] [place] [address] Referral ID Status Reason Start Date Expiration Date Visits Requested Visits Authorized [id number] Pending Review Auto-Generat ed Referral 05/15/2022 05/15/2023 1 1 [facility] Chief Complaint and Reason for Visit Chief Complaint rash Chief Complaint rash RASH Advance Directives No Advanced Directives Records Found Advance Directive Response Recorded Date/ Time Living Will No February 15, 2022 1:09am Power of Respiratory Manager No February 15 1:09am Advance Directive Response Recorded Date/ Time Living Will No April 05, 2022 10:05pm Power of Respiratory Manager No April 05 10:05pm Summary Purpose Family History No Family History Records FoundNo Family History Records Found Reason for Referral Specialty Diagnoses / Procedures Referred By Contac t Referred To Contact Diagnoses Wellness examination Procedures CONSULT TO WOMEN'S HEALTH OFFICE/OUTPATIENT [facility] MDM 60-74 MINUTES Older, KIMBERLEE Clarke.SHIPPING ASSOCIATE [address] [place] [address] Referral ID Status Reason Start Date Expiration Date Visits Requested Visits Authorized [id number] Authorized PCP Requested Referral Auto-Generate d Referral 05/09/2022 05/09/2023 1 1 Specialty Diagnoses / Procedures Referred By Contac t Referred To Contact Dermatology Diagnoses Skin lesion Procedures CONSULT TO DERMATOLOGY Shelly Medellin, KIMBERLEE.SHIPPING ASSOCIATE [address] [place] [address] Referral ID Status Reason Start Date Expiration Date Visits Requested Visits Authorized [id number] Ref Not Required PCP Requested Referral 2023 05/20/2024 1 1 Additional Source Comments Goals (unrecognized section and content) Goals may be documented in a n alternate sectionGoals may be documented in an alternate section INFORMATION SOURCE (unrecogn ized section and content) DATE CREATED AUTHOR 04/11/2022 [facility] DATE CREATED AUTHOR AUTHOR'S JÚNIOR STRICKLAND 04/30/2025 [facility] Source Comments (unrecognize d section and content) In the event this informatio n is protected by the Federal Confidentiality of Alcohol and Drug Abuse Patient Records regulations: The Federal rules restrict any use of the information to criminally investigate or prosecute any alcohol or drug abuse patient.[facility] the event this information is protected by the Federal Confidentiality of Alcohol and Drug Abuse Patient Records regulations: The Federal rules restrict any use of the information to criminally investigate or prosecute any alcohol or drug abuse patient.[facility] Center[facility] the event this information is protected by the Federal Confidentiality of Alcohol and Drug Abuse Patient Records regulations: The Federal rules restrict any use of the information to criminally investigate or prosecute any alcohol or drug abuse patient.[facility] CenterIn the event this information is protected by the Federal Confidentiality of Alcohol and Drug Abuse Patient Records regulations: The Federal rules restrict any use of the information to criminally investigate or prosecute any alcohol or drug abuse patient.[facility] Center[facility] the event this information is protected by the Federal Confidentiality of Alcohol and Drug Abuse Patient Records regulations: The Federal rules restrict any use of the information to criminally investigate or prosecute any alcohol or drug abuse patient.[facility] Center[facility] the event this information is protected by the Federal Confidentiality of Alcohol and Drug Abuse Patient Records regulations: The Federal rules restrict any use of the information to criminally investigate or prosecute any alcohol or drug abuse patient.[facility] Center[facility] the event this information is protected by the Federal Confidentiality of Alcohol and Drug Abuse Patient Records regulations: The Federal rules restrict any use of the information to criminally investigate or prosecute any alcohol or drug abuse patient.[facility] Center[facility] the event this information is protected by the Federal Confidentiality of Alcohol and Drug Abuse Patient Records regulations: The Federal rules restrict any use of the information to criminally investigate or prosecute any alcohol or drug abuse patient.[facility] Center[facility] the event this information is protected by the Federal Confidentiality of Alcohol and Drug Abuse Patient Records regulations: The Federal rules restrict any use of the information to criminally investigate or prosecute any alcohol or drug abuse patient.[facility] Center[facility] the event this information is protected by the Federal Confidentiality of Alcohol and Drug Abuse Patient Records regulations: The Federal rules restrict any use of the information to criminally investigate or prosecute any alcohol or drug abuse patient.[facility] Center[facility] the event this information is protected by the Federal Confidentiality of Alcohol and Drug Abuse Patient Records regulations: The Federal rules restrict any use of the information to criminally investigate or prosecute any alcohol or drug abuse patient.[facility] Reason for Visit (unrecogniz ed section and content) Reason Comments Well Woman Specialty Diagnoses / Procedures Referred By Contac t Referred To Contact Diagnoses Well woman exam with routine gynecological exam Procedures CONSULT TO FILM WRITER OFFICE/OUTPATIENT [facility] 60 MINUTES Kena Delaney MD [address] [place] [address] Phone: tel: fax: Referral ID Status Reason Start Date Expiration Date V isits Requested Visits Authorized [id number] Closed PCP Requested Referral Auto-Generated Referral 11/25/2024 11/25/2025 1 1 Reason Comments Physical Rash on left arm Reason Comments Results Reason Comments Physical Reason Comments Sore Throat cough x 2 days Reason Comments Eye Problem Left eye pain, swell ing and redness - woke up with symptoms Reason Comments Wellness Reason Comments Appointment Reason Onset Date Comments Insertion Of IUD 01/05/2025 Removal and ins ertion Specialty Diagnoses / Procedures Referred By Yash garcia Referred To Contact [facility] Diagnoses Encounter for removal and reinsertion of intrauterine contraceptive device (IUD) Procedures INSERT INTRAUTERINE DEVICE LEVONORGESTREL IU 52MG 5 YR INSERT INTRAUTERINE DEVICE Tiffanie Pryor MD [address] [place] [address] Phone: tel: fax: [facility] [address] [place] [address] Referral ID Status Reason Start Date Expiration Date V isits Requested Visits Authorized [id number] Closed Auto-Generate d Referral 12/10/2024 12/10/2025 1 1 Reason Comments Thigh Pain right thigh pain x 1 day Care Teams (unrecognized sec tion and content) [employer] Leak Tester Relationship Specialty Start Date End Date Kena Delaney MD [address] [place], [place] [id number] PCP - General Family Practice 05/09/22 [employer] Leak Tester Relationship Specialty Start Date End Date Kena Delaney MD [address] [place] [address] PCP - General Family Practice 05/09/22 [employer] Leak Tester Relationship Specialty Start Date End Date Kena Delaney MD [address] [place] [address] PCP - General Family Medicine 05/09/22 [employer] Leak Tester Relationship Specialty Start Date End Date Kena Delaney MD [address] [place] [address] PCP - General Family Medicine 05/09/22 [employer] Leak Tester Relationship Specialty Start Date End Date Kena Delaney MD [address] [place] [address] PCP - General Family Medicine 05/09/22 [employer] Leak Tester Relationship Specialty Start Date End Date Kena Delaney MD [address] [place] [address] PCP - General Family Medicine 05/09/22 [employer] Leak Tester Relationship Specialty Start Date End Date Kena Delaney MD [address] [place] [address] PCP - General Family Medicine 05/09/22 Shelly Medellin, NUMERICAL CONTROL DRILL PRESS OPERATOR.SHIPPING ASSOCIATE [address] [place] [address] Activities Therapist Family Medicine 08/10/24 Sidney Zacarias NUMERICAL CONTROL DRILL PRESS OPERATOR.SHIPPING ASSOCIATE [address] [place] [address] Activities Therapist Family Medicine 08/19/24 [employer] Leak Tester Relationship Specialty Start Date End Date Kena Delaney MD [address] [place] [address] PCP - General Family Medicine 05/09/22 Shelly Medellin, NUMERICAL CONTROL DRILL PRESS OPERATOR.SHIPPING ASSOCIATE [address] [place] [address] Activities Therapist Family Medicine 08/10/24 Sidney Zacarias APRN.SHIPPING ASSOCIATE [address] [place] [address] [facility]24 [employer] Leak Tester Relationship Specialty Start Date End Date Kena Delaney MD [address] [place] [address] PCP - General Family Medicine 05/09/22 Shelly Medellin APRN.SHIPPING ASSOCIATE [address] [place] [address] Activities Therapist Family Medicine 08/10/24 Sidney Zacarias APRN.SHIPPING ASSOCIATE [address] [place] [address] [facility] 08/[facility]/24 [employer] Leak Tester Relationship Specialty Start Date End Date Kena Delaney MD [address] [place] [address] PCP - General Family Medicine 05/09/22 Shelly Medellni APRN.SHIPPING ASSOCIATE [address] [place] [address] Activities Therapist Family Medicine 08/10/24 Sidney Zacarias APRN.SHIPPING ASSOCIATE [address] [place] [address] [facility] Family Medicine 08/19/24 [employer] Leak Tester Relationship Specialty Start Date End Date Kena Delaney MD [address] [place] [address] PCP - General Family Medicine 05/09/22 Sidney Zacarias APRN.SHIPPING ASSOCIATE [address] [place] [address] [facility] 08/[facility]/24 FOR RECORDS PERTAINING TO PATIENTS WHO ARE OR HAVE BEEN ENROLLED IN A CHEMICAL DEPENDENCY/SUBSTANCEABUSE PROGRAM, SOME INFORMATION MAY BE OMITTED. This clinical summary was aggregated from multiple sources. Caution should be exercised in using it in the provision of clinical care. This summary normalizes information from multiple sources, and as a consequence, information in this document may materially change the coding, format and clinical context of patient data. In addition, data may be omitted in some cases. CLINICAL DECISIONS SHOULD BE BASED ON THE PRIMARY CLINICAL RECORDS. [employer] provides no warranty or guarantee of the accuracy or completeness of information in this document.
== END 2025-06-21 19:39 | disposition home or self-care (01) ==
LOC: ED 19:37
PROVIDERS: Emergency Provider Emergency Medicine; PCP Family Medicine; Visit Provider Emergency Medicine
DX: M25.561 Pain in right knee (principal); F32.A Depression, unspecified; Z79.899 Other long term (current) drug therapy
CPT/HCPCS: 73564; 99282